=== PATIENT | female | born 1950 | race Caucasian/White ===

== ENCOUNTER → 2019-08-01 08:26 | Outpatient (CLI) | payer SELFPAY ==
[2019-08-01 10:33] LABS: ALB/GLOB Ratio 1.1 RATIO (0.9-2.4); AST(SGOT) 19 U/L (15-37); Alanine Aminotransfer ALT/SGPT 25 U/L (13-56); Albumin, Serum 3.6 g/dL (3.2-5.0); Alkaline Phosphatase 69 U/L (45-117); Anion Gap 6 (5-15); BUN 20 mg/dL (7-18); BUN/Creat Ratio 33.7 RATIO (10-20); Calcium,Total 9.2 mg/dL (8.5-10.1); Chloride 104 mmol/L (98-107); Cholesterol 187 mg/dL (200); Creatinine, Serum 0.59 mg/dL (0.55-1.02); EST Glomerular Filtration Rate 107 mL/min (>60); Est Glom Filt Rate - Afr Amer 130 mL/min (>60); Globulin 3.2 g/dL (2.2-4.2); Glucose 127 mg/dL (74-106); High Density Lipoprotein 66 mg/dL; Potassium 3.8 mmol/L (3.5-5.1); Protein, Total 6.8 g/dL (6.4-8.2); Sodium Level 138 mmol/L (136-145); Triglycerides 130 mg/dL; Very Low Density Lipoprotein 26 mg/dL (5-40)
[2019-08-01 10:41] LABS: Hemoglobin A1c 6.3 % (4.2-6.3)
== END ==
PROVIDERS: Family Provider Internal Medicine; Visit Provider Family Medicine
DX: I10 Essential (primary) hypertension (principal); E78.00 Pure hypercholesterolemia, unspecified
CPT/HCPCS: 36415; 80053; 80061; 83036

== ENCOUNTER → 2020-01-20 11:41 | Outpatient (CLI) | payer MEDICARE, OTHER, SELFPAY ==
--- NOTE | 2020-01-20 11:53 | BI_ITS ---
MAMMOGRAPHY - BILATERAL SCREENING REASON FOR EXAM: Female, 69 years old. Routine annual screening examination. PERTINENT HISTORY: Non-contributory. TECHNIQUE: Digital bilateral breast fernie (3D mammographic acquisition) in the CC and MLO projections. 2-D mediolateral oblique (MLO) and craniocaudad (CC) views of both breasts were obtained. CAD: Full Field Digital Mammography with Computer Added Detection was performed. COMPARISON: Comparison is made with prior examination dated September 01, 2018. FINDINGS: Breast Composition: The breasts are almost entirely fatty. There are no dominant masses or suspicious calcifications. Stable benign-appearing bilateral axillary lymph nodes. No other significant abnormalities are identified. There has been no significant change since the prior study. BI/SCREEN MAMM (CAD) W/FERNIE BILAT IMPRESSION: Stable bilateral screening mammogram. Yearly follow-up mammogram recommended. (A) ASSESSMENT CATEGORY: BIRADS Category 2: Benign. A letter regarding these results will be sent to the patient by the facility within 30 days. Approximately 10% of breast cancers are not detected by mammography. A normal mammogram should not delay biopsy of a clinically suspicious abnormality. [id number] Electronically Signed: Rene Chowdary, at 8:34 EDT , Service support ,
== END ==
PROVIDERS: PCP Family Medicine; Referring Provider Family Medicine; Visit Provider Family Medicine
DX: Z12.31 Encounter for screening mammogram for malignant neoplasm of breast (principal)
CPT/HCPCS: 77063; 77067

== ENCOUNTER → 2020-04-05 | Outpatient (CLI) | payer MEDICARE, OTHER, SELFPAY ==
[2020-04-05 18:09] LABS: Bacteria 0 SEEN /hpf (None Seen); Mucous, Urine 0 SEEN /hpf (<or=2+); White Blood Cells 0 SEEN /hpf (0-5)
[2020-04-05 18:21] LABS: Color, Urine Yellow (Yellow); Glucose, Dipstick Normal (Normal); Ketone-Dipstick Negative (Negative); Leukocyte Esterase-Dipstick Negative /ul (Negative); Nitrite-Dipstick Negative (Negative); Occult Blood-Urine 50 /ul (Negative); Protein-Dipstick Negative (Negative); Urine Bilirubin Dipstick Negative (Negative); Urine Clarity Sl. Cloudy (Clear); Urine Urobilinogen Normal (Normal)
[2020-04-05 18:32] LABS: Red Blood Cells-Urine 0-5 SEEN /hpf (0-5)
[2020-04-05 18:33] LABS: Squamous Epithelial Cells - UA 0-5 SEEN /hpf (5-10)
== END | disposition home or self-care (01) ==
PROVIDERS: PCP Family Medicine; Referring Provider Family Medicine; Visit Provider Family Medicine
DX: N39.0 Urinary tract infection, site not specified (principal)
CPT/HCPCS: 81001; 87086; 87088; 87186

== ENCOUNTER → 2020-07-06 08:28 | Outpatient (CLI) | payer MEDICARE, OTHER, SELFPAY ==
[2020-07-06 10:45] LABS: ALB/GLOB Ratio 1.1 RATIO (0.9-2.4); AST(SGOT) 18 U/L (15-37); Alanine Aminotransfer ALT/SGPT 26 U/L (13-56); Albumin, Serum 3.6 g/dL (3.2-5.0); Alkaline Phosphatase 68 U/L (45-117); Anion Gap 7 (5-15); BUN 21 mg/dL (7-18); BUN/Creat Ratio 35.7 RATIO (10-20); Calcium,Total 8.7 mg/dL (8.5-10.1); Chloride 99 mmol/L (98-107); Cholesterol 162 mg/dL (200); Creatinine, Serum 0.59 mg/dL (0.55-1.02); EST Glomerular Filtration Rate 108 mL/min (>60); Est Glom Filt Rate - Afr Amer 131 mL/min (>60); Globulin 3.2 g/dL (2.2-4.2); Glucose 125 mg/dL (74-106); High Density Lipoprotein 71 mg/dL; Potassium 3.3 mmol/L (3.5-5.1); Protein, Total 6.8 g/dL (6.4-8.2); Sodium Level 135 mmol/L (136-145); Triglycerides 104 mg/dL; Very Low Density Lipoprotein 21 mg/dL (5-40)
== END ==
PROVIDERS: PCP Family Medicine; Visit Provider Family Medicine
DX: I10 Essential (primary) hypertension (principal); E78.00 Pure hypercholesterolemia, unspecified
CPT/HCPCS: 36415; 80053; 80061

== ENCOUNTER → 2020-10-18 10:02 | Outpatient (CLI) | payer MEDICARE, OTHER, SELFPAY ==
[2020-10-18 12:28] LABS: Anion Gap 6 (5-15); BUN 21 mg/dL (7-18); BUN/Creat Ratio 37.4 RATIO (10-20); Calcium,Total 9.1 mg/dL (8.5-10.1); Chloride 98 mmol/L (98-107); Creatinine, Serum 0.56 mg/dL (0.55-1.02); EST Glomerular Filtration Rate 114 mL/min (>60); Est Glom Filt Rate - Afr Amer 138 mL/min (>60); Glucose 106 mg/dL (74-106); Potassium 3.8 mmol/L (3.5-5.1); Sodium Level 134 mmol/L (136-145)
== END ==
PROVIDERS: PCP Family Medicine; Referring Provider Family Medicine; Visit Provider Family Medicine
DX: R42 Dizziness and giddiness (principal)
CPT/HCPCS: 36415; 80048; 83735

== ENCOUNTER 2020-12-05 11:00 | Outpatient (RCR) | payer MEDICARE, OTHER, SELFPAY ==
--- NOTE | 2020-11-27 11:53 | HP.PTEVAL_ITS ---
Patient's Visit Information RONALD SAM is a 70 year old F referred to Physical Therapy by Dr. Ian Sanz MD with a diagnosis of vertigo. Date of Evaluation: 11/27/20 Physical Therapist: SEYMOUR Clark - Visit Plan Frequency: 1x/Week Duration: 3 Weeks Plan: See the pt in 1 week to recheck L Hallpike and see if symptoms have resolved - Subjective Pt reports that she had a spell a year and 1/2 ago when she would roll over the room would spin but it went away. In Dec it came back and went away quick. Now she feels a little bit better. Rolling over now the room will spin. Occ if she comes fw fast in a recliner she will feel it a little bit. It seems like it is worse when she rolls to the L. The spinning lasts not long... about 30 seconds and then it goes away. When she was first having issues it was longer. She was given something to spray up nose to clear sinuses but it did not do anything. Her balance is ok if she is just walking around. No falls. - Objective + L Hallpike for nystagmus that lasted for 30 seconds. Went right into L EPLY. Retested L Hallpike and was negative for dizziness and nystagmus. Instructed pt to avoid looking down until tomorrow and resume regular activities. Explained what BPPV was and the treatment that we just did to hopefully reduce her symptoms with rolling. Pt felt good when she left the clinic. - Goals Goal 1:: I HEP Goal Time Frame: 2-4 Weeks Goal 2:: Abolish dizziness when rolling from L side to R side Goal Time Frame: 2-4 Weeks Goal 3:: Abolish dizziness when going to sit up in her recliner Goal Time Frame: 2-4 Weeks - Rehabilitation Potential Rehabilitation Potential: Good - Anticipated Interventions Patient/Client Instruction: Educate patient on: Condition, Plan of Care For the Purpose of:: To improve performance and independence with ADL's, To improve ability of physical actions for home/community/work/leisure, To improve gait and locomotor functions, To improve safety with gait Therapeutic Exercise to Include: Strength training, Postural training, Neuromotor development, Passive ROM, Active ROM For the Purpose of:: To increase tolerance to activity/condition/position, To improve ability of physical actions for home/community/work/leisure, To improve gait and locomotor functions, To improve safety with gait Manual Therapy Techniques to Include: Other For the Purpose of:: To improve muscle performance and motor function Thank you for the opportunity to evaluate your patient. For Medicare and Medicare HMO plans, please review the plan of care and approve it. It will need to be FAXED BACK to us at [phone] for Medicare purposes. For Medicare only, by signing this I certify the plan of care. Please let me know if there are questions or concerns regarding this plan of care. Physician Signature: Date:
--- NOTE | 2020-12-05 11:14 | HP.PTDCSUM ---
It has been my pleasure to treat RONALD SAM referred by Dr. Ian Sanz MD, with the diagnosis of vertigo for a total of 2 visit(s). Discharge Date: 12/05/20 Please see the following information for a summary of their discharge status. Subjective: Pt reports that she did not feel great the next morning but has not had any dizziness since then. Rolling over in bed she feels good. She feels back to 100%. Her balance does not feel off either. % Improvement: 100 Objective/Function: - L Hallpike for dizziness and nystagmus. Goal 1:: I HEP Goal Progress: Goal Met Goal 2:: Abolish dizziness when rolling from L side to R side Goal Progress: Goal Met Goal 3:: Abolish dizziness when going to sit up in her recliner Goal Progress: Goal Met Plan: DC PT Discharge Comments: DC PT If there are questions or concerns regarding this patient's physical therapy, please feel free to call me at [phone]. Thank you for the referral of this patient. Sincerely, Jennifer Salas, MPT
== END 2020-12-05 19:00 | disposition home or self-care (01) ==
LOC: PT 11:00
PROVIDERS: PCP Family Medicine; Referring Provider Family Medicine; Visit Provider Family Medicine
DX: R42 Dizziness and giddiness (principal)
CPT/HCPCS: 97161; 97530

== ENCOUNTER → 2021-01-30 13:49 | Outpatient (CLI) | payer MEDICARE, OTHER, SELFPAY ==
--- NOTE | 2021-01-30 13:52 | BI_ITS ---
MAMMOGRAPHY - BILATERAL SCREENING REASON FOR EXAM: Female, 70 years old. Routine annual screening examination. PERTINENT HISTORY: Non-contributory. TECHNIQUE: Digital bilateral breast ana (3D mammographic acquisition) in the CC and MLO projections. 2-D mediolateral oblique (MLO) and craniocaudad (CC) views of both breasts were obtained. CAD: Full Field Digital Mammography with Computer Added Detection was performed. COMPARISON: Comparison is made with prior study dated 01/20/2020. FINDINGS: Breast Composition: The breasts are almost entirely fatty. There are no dominant masses or suspicious calcifications. Stable small benign-appearing bilateral axillary lymph nodes. No other significant abnormalities are identified. There has been no significant change since the prior study. BI/SCREENING MAMM (CAD), BILAT IMPRESSION: Stable bilateral screening mammogram. Yearly follow-up mammogram recommended. (A) ASSESSMENT CATEGORY: BIRADS Category 2: Benign. A letter regarding these results will be sent to the patient by the facility within 30 days. Approximately 10% of breast cancers are not detected by mammography. A normal mammogram should not delay biopsy of a clinically suspicious abnormality. [id number] Electronically Signed: Rene Chowdary MD at 14:44 EDT , Service support ,
== END ==
PROVIDERS: PCP Family Medicine; Referring Provider Family Medicine; Visit Provider Family Medicine
DX: Z12.31 Encounter for screening mammogram for malignant neoplasm of breast (principal)
CPT/HCPCS: 77067

== ENCOUNTER → 2021-06-19 08:26 | Outpatient (CLI) | payer MEDICARE, OTHER, SELFPAY ==
[2021-06-19 10:28] LABS: Anion Gap 5 (5-15); BUN 23 mg/dL (7-18); BUN/Creat Ratio 42.5 RATIO (10-20); Calcium,Total 9.1 mg/dL (8.5-10.1); Chloride 101 mmol/L (98-107); Cholesterol 180 mg/dL (200); Creatinine, Serum 0.54 mg/dL (0.55-1.02); EST Glomerular Filtration Rate 119 mL/min (>60); Est Glom Filt Rate - Afr Amer 144 mL/min (>60); Glucose 147 mg/dL (74-106); High Density Lipoprotein 66 mg/dL; Potassium 3.9 mmol/L (3.5-5.1); Sodium Level 135 mmol/L (136-145); Triglycerides 121 mg/dL; Very Low Density Lipoprotein 24 mg/dL (5-40)
[2021-06-19 10:32] LABS: Hemoglobin A1c 6.1 % (3.8-5.6)
== END ==
PROVIDERS: PCP Nurse Practitioner Family; Referring Provider Nurse Practitioner Family; Visit Provider Nurse Practitioner Family
DX: E11.9 Type 2 diabetes mellitus without complications (principal); I10 Essential (primary) hypertension; E78.00 Pure hypercholesterolemia, unspecified
CPT/HCPCS: 36415; 80048; 80061; 83036

== ENCOUNTER 2021-10-15 10:22 | Outpatient (CLI) | payer MEDICARE, OTHER, SELFPAY ==
[2021-10-15 10:31] LABS: Mucous, Urine 0 SEEN /hpf (<or=2+); Red Blood Cells-Urine 0 SEEN /hpf (0-5); Squamous Epithelial Cells - UA 0 SEEN /hpf (5-10); White Blood Cells 0 SEEN /hpf (0-5)
[2021-10-15 12:24] LABS: Absolute Neutrophil Count 5.1 X10^3/uL (2.0-7.7); Basophil# 0.08 X10^3/uL; Eosinophil# 0.21 X10^3/uL; Eosinophils% 2.5 % (0-5); Hematocrit 47.1 % (37-47); Hemoglobin 15.5 g/dL (12.0-15.0); Lymphocyte % 25.4 % (19-41); Mean Corp Hgb Conc 32.9 g/dL (32-36); Mean Corpuscular Hgb 28.4 pg (27.0-32.0); Mean Corpuscular Volume 86.3 fL (81-99); Mean Platelet Vol. 11.1 fl (6.2-12.0); Monocyte# 0.78 X10^3/uL; Monocyte% 9.4 % (0-10); NRBC Flagged by Analyzer 0 % (0-5); Neutrophil # 5.06 X10^3/uL (2.7-7.7); Neutrophil % 61.2 % (47-70); Platelet Count 230 K/mm3 (150-450); RBC Distribution Width SD 40.4 fl (35.1-43.9); Red Blood Count 5.46 M/mm3 (4.2-5.4); White Blood Count 8.3 K/mm3 (4.4-11.0)
[2021-10-15 12:39] LABS: Color, Urine Yellow (Yellow); Glucose, Dipstick Normal (Normal); Ketone-Dipstick Negative (Negative); Leukocyte Esterase-Dipstick Negative /ul (Negative); Nitrite-Dipstick Negative (Negative); Occult Blood-Urine Negative /ul (Negative); Protein-Dipstick Negative (Negative); Specific Gravity, Urine 1.015 (1.002-1.030); Urine Bilirubin Dipstick Negative (Negative); Urine Clarity Sl. Cloudy (Clear); Urine Urobilinogen Normal (Normal)
[2021-10-15 12:45] LABS: Amorphous Sediment 1+; Bacteria 2+ /hpf (None Seen)
[2021-10-15 12:51] LABS: Hemoglobin A1c 6.2 % (3.8-5.6)
[2021-10-15 12:55] LABS: AST(SGOT) 21 U/L (15-37); Alanine Aminotransfer ALT/SGPT 30 U/L (13-56); Albumin, Serum 3.6 g/dL (3.2-5.0); Alkaline Phosphatase 77 U/L (45-117); Anion Gap 7 (5-15); BUN 23 mg/dL (7-18); BUN/Creat Ratio 46.3 RATIO (10-20); Calcium,Total 9.4 mg/dL (8.5-10.1); Chloride 99 mmol/L (98-107); Cholesterol 197 mg/dL (200); EST Glomerular Filtration Rate 131 mL/min (>60); Est Glom Filt Rate - Afr Amer 158 mL/min (>60); Globulin 3.6 g/dL (2.2-4.2); Glucose 112 mg/dL (74-106); High Density Lipoprotein 63 mg/dL; Potassium 3.6 mmol/L (3.5-5.1); Protein, Total 7.2 g/dL (6.4-8.2); Sodium Level 136 mmol/L (136-145); T4 Free Direct 1.19 ng/dL (0.76-1.46); Thyroid Stim Hormone (TSH) 1.43 uIU/mL (0.358-3.74); Triglycerides 197 mg/dL; Very Low Density Lipoprotein 39 mg/dL (5-40)
[2021-10-15 13:00] LABS: Vitamin D,25 Hydroxy 105.5 ng/mL
[2021-10-15 13:01] LABS: Microalbumin,Random Urine < 5.0 mg/L (NO RANGE EST.)
[2021-10-17 19:01] LABS: Anti-Thyroglobulin AB < 1.0 IU/mL (0.0-0.9); Thyroglobulin, Serum Qt. 38.8 ng/mL (1.5-38.5); Thyroid Peroxidase AB 8 IU/mL (0-34)
== END 2021-10-15 23:59 | disposition home or self-care (01) ==
LOC: MFPLAB 10:23
PROVIDERS: PCP Family Medicine; Referring Provider Family Medicine; Visit Provider Family Medicine
DX: E11.9 Type 2 diabetes mellitus without complications (principal); E55.9 Vitamin D deficiency, unspecified; E04.1 Nontoxic single thyroid nodule
CPT/HCPCS: 36415; 80053; 80061; 81001; 82043; 82306; 82570; 83036; 84432; 84439; 84443; 85025; 86376; 86800

== ENCOUNTER 2021-10-18 12:38 | Outpatient (CLI) | payer MEDICARE, OTHER, SELFPAY ==
--- NOTE | 2021-10-18 12:42 | US_ITS ---
STUDY: THYROID ULTRASOUND REASON FOR EXAM: Female, 71 years old. NODULE TECHNIQUE: Ultrasound evaluation of the thyroid was performed with real-time and static ty-scale imaging. COMPARISON: None. FINDINGS: RIGHT LOBE: The right lobe of the thyroid gland measures 5.7 x 2.5 cm. There is a heterogeneous echotexture. There are nodules. These measure 7 x 8 mm, 10 x 11 mm, and 9 x 9 mm. LEFT LOBE: The left lobe of the thyroid gland measures 6 x 2.1 cm. There is a heterogeneous echotexture. There are nodules. These measure 8 x 8 mm, 12 x 13 mm, and 20 x 18 mm. ISTHMUS: The isthmus measures 4 mm. US/Thyroid IMPRESSION: There are RIGHT nodules. This nodule is solid or almost completely solid, anechoic, [id number], smoothly marginated and contains no echogenic foci. TI-RADS points: 2. TI-RADS category: TR2. This nodule is not suspicious and no FNA or follow-up is necessary. There are left nodules. This nodule is solid or almost completely solid, anechoic, [id number], smoothly marginated and contains no echogenic foci. TI-RADS points: 2. TI-RADS category: TR2. This nodule is not suspicious and no FNA or follow-up is necessary. Electronically Signed: Maurice Rasmussen MD at 21:41 EST ,
== END 2021-10-18 23:59 | disposition home or self-care (01) ==
LOC: CVS 12:39
PROVIDERS: PCP Family Medicine; Referring Provider Family Medicine; Visit Provider Family Medicine
DX: E04.1 Nontoxic single thyroid nodule (principal); R01.1 Cardiac murmur, unspecified
CPT/HCPCS: 76536

== ENCOUNTER 2021-11-06 10:53 | Outpatient (CLI) | payer MEDICARE, OTHER, SELFPAY ==
--- NOTE | 2021-11-06 10:56 | ECHOD_ITS ---
Reason For Study: MURMUR Procedure This was a 2D Doppler, Color Flow transthoracic echocardiogram. The study was technically difficult. Exam performed in department. Left Ventricle Normal LV size. Left ventricular systolic function is hyperdynamic. The estimated ejection fraction is 75 %. Diastolic function is indeterminate. No regional wall motion abnormalities noted. Right Ventricle Normal RV size. Normal systolic function. Atria Normal left atrium. Normal right atrium. No doppler evidence for ASD. Mitral Valve There is mild mitral annular calcification. Extension of the mitral annular calcification on the base of the posterior mitral valve leaflet. Trivial mitral valve insufficiency. Tricuspid Valve Normal tricuspid valve. Trivial tricuspid valve insufficiency. Unable to estimate RV systolic pressure/pulmonary artery pressure due to technically difficult study. Aortic Valve The aortic valve is not well visualized. Pulmonic Valve The pulmonic valve is not well visualized. Great Vessels Normal sized aortic root. Pericardium/Pleural No pericardial effusion. MMode/2D Measurements & Calculations LVIDd: 4.8 cm IVSd: 0.98 cm Ao root diam: 3.2 cm LVIDs: 2.5 cm LVPWd: 0.96 cm RVDd: 3.1 cm FS: 48.2 % LAV(MOD-bp): 60.1 ml LA A4 area: 19.7 cm2 LA dimension(2D): 4.1 cm LAV(MOD-bp) Indexed: 27.9 ml/m2 LAV(MOD-sp2): 64.1 ml LAV(MOD-sp4): 54.7 ml RA A4 area: 16.7 cm2 Time Measurements MV dec time: 0.22 sec Doppler Measurements & Calculations MV E max freeman: 69.2 cm/sec Lat Peak E' Freeman: 7.7 cm/sec Med Peak E' Freeman: 7.6 cm/sec MV A max freeman: 76.4 cm/sec E/E' lat: 8.9 E/E' med: 9.1 MV E/A: 0.91 Ao V2 max: 118.2 cm/sec LV V1 max: 101.1 cm/sec Ao max P.8 mmHg LV V1 max P.1 mmHg ECHO/Echo Complete Interpretation Summary The study was technically difficult. Left ventricular systolic function is hyperdynamic. The estimated ejection fraction is 75 %. There is mild mitral annular calcification. Extension of the mitral annular calcification on the base of the posterior mitr al valve leaflet. Trivial mitral valve insufficiency. Trivial tricuspid valve insufficiency. Unable to estimate RV systolic pressure/pulmonary artery pressure due to techni belinda difficult study. Diastolic function is indeterminate. Ordering Physician: Ian Ritchie Referring Physician: Ian Ritchie Performed By: Sandra Pearson, CHRISTIAN, RVT
== END 2021-11-06 23:59 | disposition home or self-care (01) ==
LOC: CVS 10:54
PROVIDERS: PCP Family Medicine; Referring Provider Family Medicine; Visit Provider Family Medicine
DX: R01.1 Cardiac murmur, unspecified (principal)
CPT/HCPCS: 93306

== ENCOUNTER 2021-11-27 14:10 | Outpatient (CLI) | payer MEDICARE, OTHER, SELFPAY ==
[2021-11-27 17:52] LABS: Absolute Neutrophil Count 4.9 X10^3/uL (2.0-7.7); Basophil# 0.06 X10^3/uL; Basophil% 0.8 % (0-1); Eosinophil# 0.23 X10^3/uL; Eosinophils% 2.9 % (0-5); Hematocrit 45.9 % (37-47); Hemoglobin 15.6 g/dL (12.0-15.0); Mean Corpuscular Hgb 28.7 pg (27.0-32.0); Mean Corpuscular Volume 84.4 fL (81-99); Mean Platelet Vol. 11.1 fl (6.2-12.0); Monocyte# 0.74 X10^3/uL; Monocyte% 9.3 % (0-10); NRBC Flagged by Analyzer 0 % (0-5); Neutrophil # 4.94 X10^3/uL (2.7-7.7); Neutrophil % 61.6 % (47-70); Platelet Count 199 K/mm3 (150-450); RBC Distribution Width SD 39.7 fl (35.1-43.9); Red Blood Count 5.44 M/mm3 (4.2-5.4)
[2021-11-27 18:09] LABS: Ferritin 155 ng/mL (8-252); Iron 61 ug/dL (50-170); Iron Binding Capacity,Total 344 ug/dL (250-450)
[2021-11-29 11:36] LABS: Transferrin 231 mg/dL (192-364)
== END 2021-11-27 23:59 | disposition home or self-care (01) ==
LOC: MFPLAB 14:23
PROVIDERS: PCP Family Medicine; Referring Provider Family Medicine; Visit Provider Family Medicine
DX: D75.1 Secondary polycythemia (principal)
CPT/HCPCS: 36415; 82728; 83540; 83550; 84466; 85025

== ENCOUNTER → 2022-02-28 | Outpatient (CLI) | payer MEDICARE, OTHER, SELFPAY ==
[2022-02-28 15:11] LABS: Absolute Lymphocyte Count 2.13 X10^3/uL (0.83-4.51); Absolute Neutrophil Count 5.2 X10^3/uL (2.0-7.7); Basophil# 0.07 X10^3/uL; Basophil% 0.8 % (0-1); Eosinophil# 0.24 X10^3/uL; Eosinophils% 2.9 % (0-5); Hematocrit 45.6 % (37-47); Hemoglobin 15.5 g/dL (12.0-15.0); Lymphocyte # 2.13 X10^3/ul (0.83-4.51); Lymphocyte % 25.6 % (19-41); Mean Corpuscular Hgb 28.9 pg (27.0-32.0); Mean Corpuscular Volume 85.1 fL (81-99); Monocyte# 0.68 X10^3/uL; Monocyte% 8.2 % (0-10); NRBC Flagged by Analyzer 0 % (0-5); Neutrophil # 5.19 X10^3/uL (2.7-7.7); Neutrophil % 62.3 % (47-70); Platelet Count 218 K/mm3 (150-450); Red Blood Count 5.36 M/mm3 (4.2-5.4); White Blood Count 8.3 K/mm3 (4.4-11.0)
[2022-02-28 15:29] LABS: Hemoglobin A1c 6.1 % (3.8-5.6)
[2022-02-28 15:38] LABS: Vitamin D,25 Hydroxy 53.9 ng/mL
[2022-02-28 15:40] LABS: ALB/GLOB Ratio 1.1 RATIO (0.9-2.4); AST(SGOT) 22 U/L (15-37); Alanine Aminotransfer ALT/SGPT 27 U/L (13-56); Albumin, Serum 3.7 g/dL (3.2-5.0); Alkaline Phosphatase 67 U/L (45-117); Anion Gap 8 (5-15); BUN 18 mg/dL (7-18); BUN/Creat Ratio 29.2 RATIO (10-20); Calcium,Total 9.8 mg/dL (8.5-10.1); Chloride 101 mmol/L (98-107); Cholesterol 194 mg/dL (200); Creatinine, Serum 0.62 mg/dL (0.55-1.02); EST Glomerular Filtration Rate 102 mL/min (>60); Est Glom Filt Rate - Afr Amer 123 mL/min (>60); Globulin 3.4 g/dL (2.2-4.2); Glucose 130 mg/dL (74-106); High Density Lipoprotein 66 mg/dL; Potassium 3.4 mmol/L (3.5-5.1); Protein, Total 7.1 g/dL (6.4-8.2); Sodium Level 138 mmol/L (136-145); Triglycerides 113 mg/dL; Very Low Density Lipoprotein 23 mg/dL (5-40)
== END | disposition home or self-care (01) ==
LOC: MFPLAB 13:55
PROVIDERS: PCP Family Medicine; Referring Provider Family Medicine; Visit Provider Family Medicine
DX: E11.9 Type 2 diabetes mellitus without complications (principal); E55.9 Vitamin D deficiency, unspecified
CPT/HCPCS: 36415; 80053; 80061; 82306; 83036; 85025

== ENCOUNTER → 2022-03-21 | Outpatient (CLI) | payer MEDICARE, OTHER, SELFPAY ==
--- NOTE | 2022-03-21 09:55 | BI_ITS ---
MAMMOGRAPHY - BILATERAL SCREENING REASON FOR EXAM: Female, 72 years old. Routine annual screening examination. PERTINENT HISTORY: Non-contributory. TECHNIQUE: Digital bilateral breast fernie (3D mammographic acquisition) in the CC and MLO projections. 2-D mediolateral oblique (MLO) and craniocaudad (CC) views of both breasts were obtained. CAD: Full Field Digital Mammography with Computer Added Detection was performed. COMPARISON: Comparison is made with prior study dated 01/30/2021 and 01/20/2020. FINDINGS: Breast Composition: The breasts are almost entirely fatty. There are no dominant masses or suspicious calcifications. A tissue clip marker is seen in the upper central aspect of the left breast. Stable small benign-appearing bilateral axillary lymph nodes. No other significant abnormalities are identified. There has been no significant change since the prior study. BI/SCRN MAMM (CAD)W/FERNIE BILAT IMPRESSION: Stable bilateral screening mammogram. Yearly follow-up mammogram recommended. (A) ASSESSMENT CATEGORY: BIRADS Category 2: Benign. A letter regarding these results will be sent to the patient by the facility within 30 days. Approximately 10% of breast cancers are not detected by mammography. A normal mammogram should not delay biopsy of a clinically suspicious abnormality. [id number] Electronically Signed: Rene Chowdary MD at 9:30 EDT ,
== END | disposition home or self-care (01) ==
LOC: OPBI 09:54
PROVIDERS: PCP Family Medicine; Visit Provider Family Medicine
DX: Z12.31 Encounter for screening mammogram for malignant neoplasm of breast (principal)
CPT/HCPCS: 77063; 77067

== ENCOUNTER → 2022-05-30 | Outpatient (CLI) | payer MEDICARE, OTHER, SELFPAY ==
[2022-05-30 15:43] LABS: Absolute Lymphocyte Count 2.27 X10^3/uL (0.83-4.51); Absolute Neutrophil Count 4.4 X10^3/uL (2.0-7.7); Basophil# 0.08 X10^3/uL; Eosinophil# 0.35 X10^3/uL; Eosinophils% 4.5 % (0-5); Hematocrit 46.5 % (37-47); Hemoglobin 15.7 g/dL (12.0-15.0); Lymphocyte # 2.27 X10^3/ul (0.83-4.51); Lymphocyte % 29.1 % (19-41); Mean Corp Hgb Conc 33.8 g/dL (32-36); Mean Corpuscular Hgb 29.3 pg (27.0-32.0); Mean Corpuscular Volume 86.9 fL (81-99); Monocyte# 0.68 X10^3/uL; Monocyte% 8.7 % (0-10); NRBC Flagged by Analyzer 0 % (0-5); Neutrophil # 4.38 X10^3/uL (2.7-7.7); Neutrophil % 56.3 % (47-70); Platelet Count 219 K/mm3 (150-450); RBC Distribution Width CV 13.2 % (11.6-14.6); RBC Distribution Width SD 41.6 fl (35.1-43.9); Red Blood Count 5.35 M/mm3 (4.2-5.4); White Blood Count 7.8 K/mm3 (4.4-11.0)
[2022-05-30 16:28] LABS: Hemoglobin A1c 6.3 % (3.8-5.6)
[2022-05-30 16:30] LABS: Vitamin B12 491 pg/mL (211-911); Vitamin D,25 Hydroxy 59.4 ng/mL
[2022-05-30 16:32] LABS: ALB/GLOB Ratio 1.1 RATIO (0.9-2.4); AST(SGOT) 20 U/L (15-37); Alanine Aminotransfer ALT/SGPT 24 U/L (13-56); Albumin, Serum 3.7 g/dL (3.2-5.0); Alkaline Phosphatase 68 U/L (45-117); Anion Gap 6 (5-15); BUN 21 mg/dL (7-18); BUN/Creat Ratio 30.4 RATIO (10-20); Calcium,Total 9.8 mg/dL (8.5-10.1); Chloride 100 mmol/L (98-107); Cholesterol 179 mg/dL (200); Creatinine, Serum 0.69 mg/dL (0.55-1.02); EST Glomerular Filtration Rate 89 mL/min (>60); Est Glom Filt Rate - Afr Amer 108 mL/min (>60); Globulin 3.3 g/dL (2.2-4.2); Glucose 113 mg/dL (74-106); High Density Lipoprotein 63 mg/dL; Sodium Level 137 mmol/L (136-145); T4 Free Direct 1.21 ng/dL (0.76-1.46); Triglycerides 132 mg/dL; Very Low Density Lipoprotein 26 mg/dL (5-40)
== END | disposition home or self-care (01) ==
LOC: MFPLAB 12:14
PROVIDERS: PCP Family Medicine; Referring Provider Family Medicine; Visit Provider Family Medicine
DX: E11.9 Type 2 diabetes mellitus without complications (principal); E55.9 Vitamin D deficiency, unspecified
CPT/HCPCS: 36415; 80053; 80061; 82306; 82607; 83036; 84439; 84443; 85025

== ENCOUNTER → 2022-10-29 | Outpatient (CLI) | payer MEDICARE, OTHER, SELFPAY ==
[2022-10-29 12:09] LABS: Absolute Lymphocyte Count 2.02 X10^3/uL (0.83-4.51); Absolute Neutrophil Count 5.5 X10^3/uL (2.0-7.7); Basophil# 0.06 X10^3/uL; Basophil% 0.7 % (0-1); Eosinophil# 0.25 X10^3/uL; Eosinophils% 2.9 % (0-5); Hematocrit 47.8 % (37-47); Hemoglobin 16.1 g/dL (12.0-15.0); Lymphocyte # 2.02 X10^3/ul (0.83-4.51); Lymphocyte % 23.5 % (19-41); Mean Corp Hgb Conc 33.7 g/dL (32-36); Mean Corpuscular Hgb 28.8 pg (27.0-32.0); Mean Corpuscular Volume 85.5 fL (81-99); Mean Platelet Vol. 11.3 fl (6.2-12.0); Monocyte# 0.74 X10^3/uL; Monocyte% 8.6 % (0-10); NRBC Flagged by Analyzer 0 % (0-5); Neutrophil # 5.49 X10^3/uL (2.7-7.7); Platelet Count 227 K/mm3 (150-450); RBC Distribution Width CV 12.9 % (11.6-14.6); RBC Distribution Width SD 39.7 fl (35.1-43.9); Red Blood Count 5.59 M/mm3 (4.2-5.4); White Blood Count 8.6 K/mm3 (4.4-11.0)
[2022-10-29 12:38] LABS: Microalbumin,Random Urine 7.7 mg/L (NO RANGE EST.)
[2022-10-29 12:53] LABS: Vitamin D,25 Hydroxy 72.2 ng/mL
[2022-10-29 12:59] LABS: AST(SGOT) 19 U/L (15-37); Alanine Aminotransfer ALT/SGPT 26 U/L (13-56); Albumin, Serum 3.6 g/dL (3.2-5.0); Alkaline Phosphatase 68 U/L (45-117); Anion Gap 9 (5-15); BUN 21 mg/dL (7-18); BUN/Creat Ratio 35.8 RATIO (10-20); Calcium,Total 9.3 mg/dL (8.5-10.1); Chloride 101 mmol/L (98-107); Cholesterol 248 mg/dL (200); Creatinine, Serum 0.59 mg/dL (0.55-1.02); EST Glomerular Filtration Rate 108 mL/min (>60); Est Glom Filt Rate - Afr Amer 130 mL/min (>60); Globulin 3.5 g/dL (2.2-4.2); Glucose 132 mg/dL (74-106); High Density Lipoprotein 65 mg/dL; Potassium 3.7 mmol/L (3.5-5.1); Protein, Total 7.1 g/dL (6.4-8.2); Sodium Level 136 mmol/L (136-145); Thyroid Stim Hormone (TSH) 1.25 uIU/mL (0.358-3.74); Triglycerides 165 mg/dL; Very Low Density Lipoprotein 33 mg/dL (5-40)
[2022-10-29 13:38] LABS: Hemoglobin A1c 6.3 % (3.8-5.6)
== END | disposition home or self-care (01) ==
LOC: MFPLAB 10:43
PROVIDERS: PCP Family Medicine; Referring Provider Family Medicine; Visit Provider Family Medicine
DX: E11.9 Type 2 diabetes mellitus without complications (principal); E55.9 Vitamin D deficiency, unspecified
CPT/HCPCS: 36415; 80053; 80061; 82043; 82306; 82570; 83036; 84443; 85025

== ENCOUNTER → 2022-11-10 | Outpatient (CLI) | payer MEDICARE, OTHER, SELFPAY ==
--- NOTE | 2022-11-10 14:31 | US_ITS ---
EXAM: US SOFT TISSUES HEAD AND NECK, THYROID CLINICAL INDICATION: NODULE NODULE TECHNIQUE: Greyscale and color doppler imaging was performed of the thyroid gland. This report was created using [employer] report generation technology. COMPARISON: Thyroid ultrasound 10/18/2021. FINDINGS: LEFT THYROID LOBE: The left lobe of the thyroid gland measures 6.4 x 2.6 x 2.3 cm. It is heterogeneous and contains multiple nodules, the 3 largest of which are as follows:. In the upper pole of the left lobe, there is a 1.3 x 1.4 x 0.8 cm nodule. This nodule is solid or almost completely solid, hypoechoic, [id number], smoothly marginated and contains no echogenic foci. This nodule is moderately suspicious. Recommend follow-up thyroid ultrasounds at 1, 2, 3 and 5 years. In the mid left lobe of the thyroid gland, there is an 8 mm nodule. This nodule is solid or almost completely solid, hypoechoic, [id number], smoothly marginated and contains no echogenic foci. This nodule is moderately suspicious but no FNA or follow-up is necessary given the small size of this nodule. In the lower pole of the left lobe of the thyroid gland, there is a 1.6 x 0.4 x 1.7 cm nodule. As imaged, it is slightly smaller than it was on the 2021 exam. This nodule is solid or almost completely solid, hyperechoic or isoechoic, [id number], smoothly marginated and contains no echogenic foci. This nodule is mildly suspicious. Recommend follow-up thyroid ultrasounds at 2 and 4 years. RIGHT THYROID LOBE: The right lobe of the thyroid gland measures 5.1 x 2.5 x 2.6 cm. It is heterogeneous and contains multiple nodules, the 3 largest of which are as follows:. In the mid right lobe of the thyroid gland, there is a 7 mm nodule. This nodule is spongiform. This nodule is benign and no FNA or follow-up is necessary. In the lower pole of the right lobe, there is a 1.3 x 1.3 x 0.8 cm nodule. This nodule is solid or almost completely solid, hyperechoic or isoechoic, [id number], smoothly marginated and contains no echogenic foci. This nodule is mildly suspicious but no FNA or follow-up is necessary given the small size of this nodule. In the lower pole of the right lobe, there is a 1.1 x 1.4 x 0.9 cm nodule. This nodule is solid or almost completely solid, hyperechoic or isoechoic, epwpe-iowz-hzie, smoothly marginated and contains no echogenic foci. This nodule is mildly suspicious but no FNA or follow-up is necessary given the small size of this nodule. ISTHMUS: The thyroid isthmus measures 3 mm. No thyroid nodules are present. US/Thyroid IMPRESSION: Redemonstration of multiple thyroid nodules, as above. Recommend additional follow-up ultrasound evaluations in another one, 2, 3, and 5 years. Electronically Signed: Андрей Chiang MD at 8:07 EDT ,
== END | disposition home or self-care (01) ==
LOC: US 14:29
PROVIDERS: PCP Family Medicine; Referring Provider Family Medicine; Visit Provider Family Medicine
DX: E04.2 Nontoxic multinodular goiter (principal)
CPT/HCPCS: 76536

== ENCOUNTER 2023-02-18 12:00 | Outpatient (RCR) | payer MEDICARE, OTHER, SELFPAY ==
--- NOTE | 2023-01-20 13:49 | HP.PTEVAL_ITS ---
Patient's Visit Information RONALD SAM is a 72 year old F referred to Physical Therapy by Dr. Ian Ritchie MD with a diagnosis of R RC tendonopathy. Date of Evaluation: 01/20/23 Physical Therapist: SEYMOUR Clark - Visit Plan Frequency: 2x /Week Duration: 6 Weeks Plan: 2X/ week for 6 weeks for R shoulder PROM, AAROM, AROM, stretching, strengthening of the RC and postural exercises with HEP. HEP: supine wand flexion, standing wand abd, and towel IR - Subjective Pt reports that her R shoulder hurts. She could not get her shoulder over her head but now can but it hurts. She thinks that in October she was carrying things from the basement and was about 40# and she tried to heeve hoe it into the trashcan and then her arms was sore and continued to be sore. She is R handed. no numbness and tingling. She does not feel it is any weaker than her L. She can only lay on her R shoulder sometimes. It feels like there is some reason it does not want to go overhead. - Pain R shoulder pain Pain Intensity (Out of 10): 0 Pain Intensity Range: 1, 2 Comment: with lifting it - Objective R handed: R 40# and L 40#. UE AROM: R flexion 120 degrees (painful), ABD 130, ER 30, IR L4. L flexion 150 degrees, ABD 175, ER 33, IR T12. UE MMT. R flexion 8.8, ABD 7.7, ER 10.9, IR 9.3. L flexion 12.4, ABD 12.1, ER 11.2, IR 12.7. Bicep relfex 2+/3 B. Pain with R HK. Pain and slight weakness with R Empty can test - Balance/Special Test Scores Quick DASH Score: 9.0900 - Goals Goal 1:: I HEP Goal Time Frame: 4-6 Weeks Goal 2:: Increase R shoulder AROM to equal the L (at time of the eval: R flexion 120 degrees (painful), ABD 130, ER 30, IR L4. L flexion 150 degrees, ABD 175, ER 33, IR T12) Goal Time Frame: 4-6 Weeks Goal 3:: Increase R UE MMT (at the time of the eval: R flexion 8.8, ABD 7.7, ER 10.9, IR 9.3 and. L flexion 12.4, ABD 12.1, ER 11.2, IR 12.7) Goal Time Frame: 4-6 Weeks Goal 4:: Be able to reach in her cupboard without having pain in the R shoulder Goal Time Frame: 4-6 Weeks - Rehabilitation Potential Rehabilitation Potential: Good - Anticipated Interventions Patient/Client Instruction: Educate patient on: Condition, Plan of Care For the Purpose of:: To decrease pain, To improve muscle performance and motor function, To improve ability to perform ADL's, To increase tolerance to activity/condition/position, To improve performance and independence with ADL's, To decrease level of supervision to perform tasks, To improve ability of physical actions for home/community/work/leisure, To improve health of tissue, To decrease soft tissue restriction, To increase flexibility/ROM Therapeutic Exercise to Include: Strength training, Body mechanics, Postural training, Flexibilty training, Neuromotor development, Passive ROM, Active ROM, Scapular Strength/Stabilization For the Purpose of:: To decrease pain, To increase ROM, To improve nutrient delivery to tissue, To increase oxygenation perfusion, To improve muscle performance and motor function, To improve ability to perform ADL's, To increase tolerance to activity/condition/position, To improve performance and independence with ADL's, To improve ability of physical actions for home/community/work/leisure, To improve health of tissue, To decrease soft tissue restriction, To increase flexibility/ROM Manual Therapy Techniques to Include: Passive ROM For the Purpose of:: To increase ROM, To improve nutrient delivery to tissue Thank you for the opportunity to evaluate your patient. For Medicare and Medicare HMO plans, please review the plan of care and approve it. It will need to be FAXED BACK to us at [phone] for Medicare purposes. For Medicare only, by signing this I certify the plan of care. Please let me know if there are questions or concerns regarding this plan of care. Physician Signature: Date:
--- NOTE | 2023-02-18 13:56 | HP.PTDCSUM ---
Discharge Summary D/C summary: It has been my pleasure to treat RONALD SAM referred by Dr. Ian Ritchie MD, with the diagnosis of R RC tendonopathy for a total of 8 visit(s). Discharge Date: 02/18/23 Please see the following information for a summary of their discharge status. Subjective Subjective: She feels that she is better than when she started but it still hurts some. She can reach up but some soreness at the end range. It is stiff in the morning but limpers up. She can reach out to the side with out pain and less cricking and cracking. Pain down the lateral arm at times and pain under the shoulder blade. The pulleys help the best. Pain R shoulder pain: Pain Intensity (Out of 10): 0 Overall Improvement % Improvement: 80 Objective Objective/Function: R flexion 156, ABD 158, ER 46, IR L1 R UE MMT (at the time of the eval: R flexion 11.2, ABD 10.3, ER 10.9 , IR 12.4 Goals Goal 1:: I HEP Goal Progress: Goal Met Goal 2:: Increase R shoulder AROM to equal the L (at time of the eval: R flexion 120 degrees (painful), ABD 130, ER 30, IR L4 L flexion 150 degrees, ABD 175, ER 33, IR T12) Goal Progress: Goal Met Goal 3:: Increase R UE MMT (at the time of the eval: R flexion 8.8, ABD 7.7, ER 10.9, IR 9.3 and L flexion 12.4, ABD 12.1, ER 11.2, IR 12.7) Goal Progress: Goal Met Goal 4:: Be able to reach in her cupboard without having pain in the R shoulder Goal Progress: Progressing Plan Plan: DC PT to HEP. Pt has improvements in ROM and strength D/C Information Discharge Comments: DC PT to HEP d/c sentence: If there are questions or concerns regarding this patient's physical therapy, please feel free to call me at [phone]. Thank you for the referral of this patient. Sincerely, Jennifer Salas, MPT Balance/Gait/Functional tests Balance/Special Test Scores Quick DASH Score: 2.2722
== END 2023-02-18 19:00 | disposition home or self-care (01) ==
LOC: PT 12:00
PROVIDERS: PCP Family Medicine; Referring Provider Family Medicine; Visit Provider Family Medicine
DX: M67.813 Other specified disorders of tendon, right shoulder (principal)
CPT/HCPCS: 97110; 97161; 97530

== ENCOUNTER → 2023-02-25 | Outpatient (CLI) | payer MEDICARE, OTHER, SELFPAY ==
[2023-02-25 12:58] LABS: Hemoglobin A1c 6.4 % (3.8-5.6)
[2023-02-25 13:11] LABS: ALB/GLOB Ratio 1.2 RATIO (0.9-2.4); AST(SGOT) 18 U/L (15-37); Alanine Aminotransfer ALT/SGPT 23 U/L (13-56); Albumin, Serum 3.6 g/dL (3.2-5.0); Alkaline Phosphatase 69 U/L (45-117); Anion Gap 9 (5-15); BUN 21 mg/dL (7-18); BUN/Creat Ratio 35.1 RATIO (10-20); Calcium,Total 9.3 mg/dL (8.5-10.1); Chloride 98 mmol/L (98-107); Cholesterol 162 mg/dL (200); EST Glomerular Filtration Rate 105 mL/min (>60); Est Glom Filt Rate - Afr Amer 127 mL/min (>60); Glucose 110 mg/dL (74-106); High Density Lipoprotein 60 mg/dL; Potassium 3.9 mmol/L (3.5-5.1); Protein, Total 6.6 g/dL (6.4-8.2); Sodium Level 134 mmol/L (136-145); Triglycerides 128 mg/dL; Very Low Density Lipoprotein 26 mg/dL (5-40)
== END | disposition home or self-care (01) ==
LOC: MFPLAB 11:33
PROVIDERS: PCP Family Medicine; Visit Provider Family Medicine
DX: E11.9 Type 2 diabetes mellitus without complications (principal)
CPT/HCPCS: 36415; 80053; 80061; 83036

== ENCOUNTER → 2023-05-05 | Outpatient (CLI) | payer MEDICARE, OTHER, SELFPAY ==
--- NOTE | 2023-05-05 12:32 | BI_ITS ---
MAMMOGRAPHY - BILATERAL SCREENING REASON FOR EXAM: Female, 73 years old. Routine annual screening examination. PERTINENT HISTORY: Non-contributory. TECHNIQUE: Digital bilateral breast fernie (3D mammographic acquisition) in the CC and MLO projections. 2-D mediolateral oblique (MLO) and craniocaudad (CC) views of both breasts were obtained. CAD: Full Field Digital Mammography with Computer Added Detection was performed. COMPARISON: Comparison is made with prior study March 21, 2022 and January 30, 2021. FINDINGS: Breast Composition: The breasts are almost entirely fatty. There are no dominant masses or suspicious calcifications. Stable small benign-appearing bilateral axillary lymph nodes. No other significant abnormalities are identified. There has been no significant change since the prior study. BI/SCRN MAMM (CAD)W/FERNIE BILAT IMPRESSION: Stable bilateral screening mammogram. Yearly follow-up mammogram recommended. (A) ASSESSMENT CATEGORY: BIRADS Category 2: Benign. A letter regarding these results will be sent to the patient by the facility within 30 days. Approximately 10% of breast cancers are not detected by mammography. A normal mammogram should not delay biopsy of a clinically suspicious abnormality. [id number] Electronically Signed: Rene Chowdary MD at 13:22 EDT ,
== END | disposition home or self-care (01) ==
LOC: OPBI 12:31
PROVIDERS: PCP Family Medicine; Referring Provider Family Medicine; Visit Provider Family Medicine
DX: Z12.31 Encounter for screening mammogram for malignant neoplasm of breast (principal)
CPT/HCPCS: 77063; 77067

== ENCOUNTER → 2023-06-26 | Outpatient (CLI) | payer MEDICARE, OTHER, SELFPAY ==
[2023-06-26 12:39] LABS: Absolute Lymphocyte Count 1.95 X10^3/uL (0.83-4.51); Absolute Neutrophil Count 5.3 X10^3/uL (2.0-7.7); Basophil# 0.09 X10^3/uL; Eosinophil# 0.35 X10^3/uL; Eosinophils% 4.1 % (0-5); Hematocrit 46.2 % (37-47); Hemoglobin 15.2 g/dL (12.0-15.0); Lymphocyte # 1.95 X10^3/ul (0.83-4.51); Lymphocyte % 22.7 % (19-41); Mean Corp Hgb Conc 32.9 g/dL (32-36); Mean Corpuscular Hgb 28.4 pg (27.0-32.0); Mean Corpuscular Volume 86.2 fL (81-99); Monocyte# 0.81 X10^3/uL; Monocyte% 9.4 % (0-10); NRBC Flagged by Analyzer 0 % (0-5); Neutrophil # 5.34 X10^3/uL (2.7-7.7); Neutrophil % 62.2 % (47-70); Platelet Count 228 K/mm3 (150-450); RBC Distribution Width CV 12.8 % (11.6-14.6); RBC Distribution Width SD 40.2 fl (35.1-43.9); Red Blood Count 5.36 M/mm3 (4.2-5.4); White Blood Count 8.6 K/mm3 (4.4-11.0)
[2023-06-26 13:02] LABS: Vitamin D,25 Hydroxy 99.4 ng/mL
[2023-06-26 13:05] LABS: AST(SGOT) 17 U/L (15-37); Alanine Aminotransfer ALT/SGPT 21 U/L (13-56); Albumin, Serum 3.5 g/dL (3.2-5.0); Alkaline Phosphatase 81 U/L (45-117); Anion Gap 5 (5-15); BUN 18 mg/dL (7-18); BUN/Creat Ratio 26.4 RATIO (10-20); Calcium,Total 9.4 mg/dL (8.5-10.1); Chloride 97 mmol/L (98-107); Cholesterol 165 mg/dL (200); Creatinine, Serum 0.68 mg/dL (0.55-1.02); EST Glomerular Filtration Rate 90 mL/min (>60); Est Glom Filt Rate - Afr Amer 109 mL/min (>60); Ferritin 191 ng/mL (8-252); Globulin 3.5 g/dL (2.2-4.2); Glucose 144 mg/dL (74-106); High Density Lipoprotein 58 mg/dL; Iron 93 ug/dL (50-170); Iron Binding Capacity,Total 347 ug/dL (250-450); Potassium 3.8 mmol/L (3.5-5.1); Sodium Level 133 mmol/L (136-145); Triglycerides 119 mg/dL; Very Low Density Lipoprotein 24 mg/dL (5-40)
[2023-06-26 13:41] LABS: Hemoglobin A1c 6.5 % (3.8-5.6)
[2023-06-27 05:07] LABS: Transferrin 251 mg/dL (192-364)
== END | disposition home or self-care (01) ==
LOC: MFPLAB 10:32
PROVIDERS: PCP Family Medicine; Visit Provider Family Medicine
DX: E11.9 Type 2 diabetes mellitus without complications (principal); D75.1 Secondary polycythemia; E55.9 Vitamin D deficiency, unspecified
CPT/HCPCS: 36415; 80053; 80061; 82306; 82728; 83036; 83540; 83550; 84466; 85025

== ENCOUNTER → 2023-07-10 | Outpatient (CLI) | payer MEDICARE, OTHER, SELFPAY ==
[2023-07-10 10:43] LABS: Anion Gap 4 (5-15); BUN 26 mg/dL (7-18); BUN/Creat Ratio 35.2 RATIO (10-20); Calcium,Total 9.3 mg/dL (8.5-10.1); Chloride 99 mmol/L (98-107); Creatinine, Serum 0.74 mg/dL (0.55-1.02); EST Glomerular Filtration Rate 82 mL/min (>60); Est Glom Filt Rate - Afr Amer 100 mL/min (>60); Glucose 157 mg/dL (74-106); Potassium 3.7 mmol/L (3.5-5.1); Sodium Level 133 mmol/L (136-145)
== END | disposition home or self-care (01) ==
LOC: MFPLAB 09:26
PROVIDERS: PCP Family Medicine; Visit Provider Family Medicine
DX: E87.6 Hypokalemia (principal)
CPT/HCPCS: 36415; 80048

== ENCOUNTER → 2023-08-31 | Outpatient (CLI) | payer MEDICARE, OTHER, SELFPAY ==
--- OUTSIDE RECORDS SUMMARY | 2023-08-31 10:32 | XMS RPT_ITS | CCD ---
Author Name Unknown Address [address] [place] [address] Organization [facility] Care Team Providers Care Market Development Trainer Name Role Phone Salina Wiseman Primary Care Provider DOMINGO RODRIGUEZ Attending Unavailable SALINA WISEMAN Primary Care Unavailabl e Allergies Allergy Classification Reported Allergen(s) Allergy Type Date of Onset Reaction(s) Facility (2 sources) amLODIPine; Translations: [AMLODIPINE] Drug Allergy 12-05-2022 [facility] (2 sources) Lisinopril; Translations: [LISINOPRIL] Drug Allergy 12-05-2022 [facility] Medications Completed/Discontinued Medications Medication Drug Class(es) Dates Sig (Normalized) Sig (Original) [id number] 200 actuat albuterol 0.09 mg/actuat metered dose inhaler (1 source) beta2-Adrenergic Agonist take 4 puff(s) by inhalation every six hours as needed for wheezing albuterol HFA (PROVENTIL HFA) inhaler Inhale 4 Puffs as instructed every 6 hours as needed for wheezing/shortness of breath. 0 Active Problems Problem Classification Problem Date Documented Da te Episodic/Chronic Thyroid disorders (1 source) Multinodular goiter; Translations: [Nontoxic multinodular goiter] Chronic Results Test Name Value Interpretation Reference Range Facil ity Vital Signs Date Time Vital Sign Value Performing Clinician Faci lity 12-08-2022 15:44-0400 Body height 170.2 cm Domingo Rodriguez MD Work Phone: [facility] 12-08-2022 15:44-0400 Body temperature 98.71 [degF] Domingo Rodriguez MD Work Phone: [facility] 12-08-2022 15:44-0400 Body weight 101.88 kg Domingo Rodriguez MD Work Phone: [facility] 12-08-2022 15:44-0400 Diastolic blood pressure 88 mm[Hg] Domingo Rodriguez MD Work Phone: [facility] 12-08-2022 15:44-0400 Heart rate 88 /min Domingo Rodriguez MD Work Phone: [facility] 12-08-2022 15:44-0400 SaO2% (BldA) [Mass fraction] 100 % Domingo Rodriguez MD Work Phone: [facility] 12-08-2022 15:44-0400 Systolic blood pressure 142 mm[Hg] Domingo Rodriguez MD Work Phone: [facility] Encounters Encounter Date Encounter Type Care Provider Facility Start: 12-08-2022 End: 12-09-2022 ambulatory DOMINGO RODRIGUEZ Facility:[facility] Start: 12-08-2022 End: 12-08-2022 Patient encounter procedure Domingo Rodriguez MD Work Phone: General Surgery Plan of Treatment Date Care Activity Detail Author Start: 06-10-2023 LIPID SCREEN LIPID SCREEN [facility] Start: 08-17-2022 ADVANCE DIRECTIVE DISCUSSION ADVANCE DIRECTIVE DISCUSSION [facility] Start: 08-17-2022 DEPRESSION ASSESSMENT DEPRESSION ASS ESSMENT [facility] Start: 09-23-2021 COVID-19 VACCINE (3 - Booster) COVID-19 VACCINE (3 - Booster) [facility] Start: 2017 BONE DENSITY BONE DENSITY [facility] Start: 2017 PNEUMOCOCCAL: 65+ (1 - PCV) PNEUMOCOCCAL: 65+ (1 - PCV) [facility] Start: 2002 SHINGRIX VACCINE (1 of 2) SHINGRIX V ACCINE (1 of 2) [facility] Start: 1997 COLOGUARD (FIT-DNA) COLOGUARD (FIT-D NA) [facility] Start: 1997 Colonoscopy COLONOSCOPY [facility] Start: 1997 COLORECTAL CANCER SCREENING COLORECTAL CANCER SCREENING [facility] Start: [address] COLONOGRAPHY [facility] Start: 1997 DIABETES SCREEN [facility]CREEN [facility] Start: 1997 FECAL OCCULT BLOOD FECAL OCCULT BLOO D [facility] Start: 1997 SIGMOIDOSCOPY SIGMOIDOSCOPY [facility] Start: 1992 Mammography MAMMOGRAM [facility] Start: 1971 Urine microalbumin profile DTAP,TDAP ,TD (1 - Tdap) [facility] Start: 1970 HEPATITIS C SCREENING HEPATITIS C JENNIFER LOPEZ [facility] Payers Date Payer Category Payer Private Health Insurance [facility] AARP SUPPLEMENT [id number] 2022-Present [phone] [address] [place] [address] Indemnity [id number] 2022 Unknown [id number] 2017 Medicare MEDICARE MEDICAR E A AND B [id number] 2017-Present [phone] [address] [address] [place] [address] Medicare [id number] 2017 Medicare [id number] Social History Date Type Detail Facility Start: 12-08-2022 Tobacco smoking stat [facility] Never smoked tobacco [facility] Start: 12-08-2022 Tobacco use and exposure Smoke less tobacco non-user [facility] Start: 12-08-2022 Alcohol intake Current drinke r of alcohol (finding) [facility] Start: 12-08-2022 Alcohol Comment social [facility] Start: 1950 Sex Assigned At Female C [facility] Progress note 12-24-2022 Note Date & Type Note Facility 12-24-2022 Note HNO ID: [id number] Author: Domingo Rodriguez MD Service: ? Author Type: Physician Type: Progress Notes Filed: 12/24/2022 2:48 PM Note Text: HISTORY AND PHYSICAL Ronald Padilla 1950 REFERRING PHYSICIAN: Salina Wiseman MD CHIEF COMPLAINT: Consult (Abnormal thyroid ultrasound) HPI: The patient is a 72 year old female with a complaint of a bilateral thyroid nodule. This thyroid nodule was found on Ultrasound by [facility]. The patient denies pain, denies difficulty swallowing, deniesrapid enlargement of the neck, deniesdysphagia, denies a change in the voice, denies hot or cold intolerence. The patient has not a prior history of neck radiation treatment. The patient is being seen by me today at the request of Dr. Salina Wiseman MD for my opinion and advice regarding Multinodular goiter (primary encounter diagnosis). PAST MEDICAL HISTORY Diagnosis Date Diabetes mellitus (HCC) Essential hypertension Mixed hyperlipidemia Multiple thyroid nodules LYNDA on CPAP Polycythemia PAST SURGICAL HISTORY Procedure Laterality Date LIGATE FALLOPIAN TUBE Current Outpatient Medications Medication Sig Dispense Refill calcium carbonate/vitamin D3 (CALCIUM 500 + D, D3, ORAL) Take 1,000 mg by mouth once daily. cyanocobalamin (VITAMIN B-12) 500 mcg tablet Take 1 tablet by mouth once daily. metFORMIN-blood sugar diagnost 500 mg cptr 500 mg twice daily. rosuvastatin (CRESTOR) 10 mg tablet Take 10 mg by mouth once daily. meloxicam (MOBIC) 15 mg tablet Take 15 mg by mouth once daily. losartan (COZAAR) 100 mg tablet Take 100 mg by mouth once daily. chlorthalidone (HYGROTON) 25 mg tablet Take 25 mg by mouth once daily. carvedilol (COREG) 12.5 mg tablet Take 12.5 mg by mouth twice daily with meals. spironolactone (ALDACTONE) 25 mg tablet Take 25 mg by mouth once daily. cholecalciferol (VITAMIN D3) 5,000 unit tab Take 5,000 Units by mouth once daily. albuterol HFA (PROVENTIL HFA) inhaler Inhale 4 Puffs as instructed every 6 hours as needed for wheezing/shortness of breath. zinc sulfate (ZINC-15 ORAL) Take 1 tablet by mouth. Multivitamin capsule Take 1 capsule by mouth once daily. Ascorbic Acid 500 mg chew Take 500 mg by mouth once daily. ubidecarenone (ULTRA COQ10 ORAL) Take 10 mg by mouth once daily. No current facility-administered medications for this visit. ALLERGIES: Amlodipine and Lisinopril PERSONAL HISTORY: Social History Tobacco Use Smoking status: Never Smokeless tobacco: Never Vaping Use Vaping Use: Never used Substance Use Topics Alcohol use: Yes Comment: social Drug use: Never FAMILY HISTORY: FAMILY HISTORY Problem Relation Age of Onset Hypothyroidism Mother Hypertension Mother Hyperlipidemia Mother Hypertension Father Renal Cell Cancer Father Brain Cancer Sister glioblastoma REVIEW OF SYMPTOMS: The review of systems data was entered by the nurse and reviewed by me Nursing Notes: Myesha Shelley RN 12/08/2022 3:52 PM Signed REVIEW OF SYSTEMS: General: The patient NOTES fatigue, denies weight loss, NOTES weight gain, denies feeling hot, and NOTES feelings of cold. Eyes: The patient denies glaucoma, denies eye injury/surgery, does not wear glasses or contacts. Ear/Nose/Throat: The patient NOTES allergies, denies hayfever, denies ear infections, and denies bloody noses. Cardiovascular: The patient denies chest pain, denies heart disease, NOTES high blood pressure,denies cardiac stent, denies prior heart attack, NOTES irregular heart beat, NOTES high cholesterol, denies poor circulation, denies heart failure, other cardiac issues, denies claudication, denies cold feet, denies peripheral arterial stent. Respiratory: The patient denies tuberculosis, denies pneumonia, denies frequent cough, denies pulmonary embolism, denies shortness of breath, and denies coughing up blood. Gastrointestinal: The patient denies difficulty swallowing, denies acid reflux, denies ulcers, denies vomiting, denies jaundice/hepatitis, denies gallbladder problems, denies black or tarry stools, denies hemorrhoids, denies bleeding from rectum, denies diverticulitis, denies constipation, denies diarrhea, denies loss of stool control, and denies hernias. Kidney/Bladder: The patient denies kidney stones, denies urine infections, and denies bloody urine. Skin: The patient denies a history of skin cancer, denies bleeding/changing moles, and denies a history of skin rash. Neurologic: The patient denies a history of epilepsy/convulsions, denies headaches, denies head/spinal injuries, and denies stroke/TIA. Psychiatric: The patient denies psychiatric medications, NOTES depression, and denies voices, denies substance abuse. Endocrine: The patient NOTES thyroid disorders, NOTES diabetes, and denies hormonal problems. Hematologic: The patient denies a history of bruising, denies bleeding, and denies anemia, denies blood clots. Infections: The patient (more content not included)... [facility] History of Present illness Narrative 12-24-2022 Domingo Rodriguez MD - 12/24/2022 2:40 PM EDT Note Date & Type Note Facility 12-24-2022 History of Presen t illness Narrative HISTORY AND PHYSICAL Ronald Padilla 1950 REFERRING PHYSICIAN: Salina Wiseman MD CHIEF COMPLAINT: Consult (Abnormal thyroid ultrasound) HPI: The patient is a 72 year old female with a complaint of a bilateral thyroid nodule. This thyroid nodule was found on Ultrasound by [facility]. The patient denies pain, denies difficulty swallowing, deniesrapid enlargement of the neck, deniesdysphagia, denies a change in the voice, denies hot or cold intolerence. The patient has not a prior history of neck radiation treatment. The patient is being seen by me today at the request of Dr. Salina Wiseman MD for my opinion and advice regarding Multinodular goiter (primary encounter diagnosis). PAST MEDICAL HISTORY Diagnosis Date Diabetes mellitus (HCC) Essential hypertension Mixed hyperlipidemia Multiple thyroid nodules LYNDA on CPAP Polycythemia PAST SURGICAL HISTORY Procedure Laterality Date LIGATE FALLOPIAN TUBE Current Outpatient Medications Medication Sig Dispense Refill calcium carbonate/vitamin D3 (CALCIUM 500 + D, D3, ORAL) Take 1,000 mg by mouth once daily. cyanocobalamin (VITAMIN B-12) 500 mcg tablet Take 1 tablet by mouth once daily. metFORMIN-blood sugar diagnost 500 mg cptr 500 mg twice daily. rosuvastatin (CRESTOR) 10 mg tablet Take 10 mg by mouth once daily. meloxicam (MOBIC) 15 mg tablet Take 15 mg by mouth once daily. losartan (COZAAR) 100 mg tablet Take 100 mg by mouth once daily. chlorthalidone (HYGROTON) 25 mg tablet Take 25 mg by mouth once daily. carvedilol (COREG) 12.5 mg tablet Take 12.5 mg by mouth twice daily with meals. spironolactone (ALDACTONE) 25 mg tablet Take 25 mg by mouth once daily. cholecalciferol (VITAMIN D3) 5,000 unit tab Take 5,000 Units by mouth once daily. albuterol HFA (PROVENTIL HFA) inhaler Inhale 4 Puffs as instructed every 6 hours as needed for wheezing/shortness of breath. zinc sulfate (ZINC-15 ORAL) Take 1 tablet by mouth. Multivitamin capsule Take 1 capsule by mouth once daily. Ascorbic Acid 500 mg chew Take 500 mg by mouth once daily. ubidecarenone (ULTRA COQ10 ORAL) Take 10 mg by mouth once daily. No current facility-administered medications for this visit. ALLERGIES: Amlodipine and Lisinopril PERSONAL HISTORY: Social History Tobacco Use Smoking status: Never Smokeless tobacco: Never Vaping Use Vaping Use: Never used Substance Use Topics Alcohol use: Yes Comment: social Drug use: Never FAMILY HISTORY: FAMILY HISTORY Problem Relation Age of Onset Hypothyroidism Mother Hypertension Mother Hyperlipidemia Mother Hypertension Father Renal Cell Cancer Father Brain Cancer Sister glioblastoma REVIEW OF SYMPTOMS: The review of systems data was entered by the nurse and reviewed by me Nursing Notes: Myesha Shelley RN 12/08/2022 3:52 PM Signed REVIEW OF SYSTEMS: General: The patient NOTES fatigue, denies weight loss, NOTES weight gain, denies feeling hot, and NOTES feelings of cold. Eyes: The patient denies glaucoma, denies eye injury/surgery, does not wear glasses or contacts. Ear/Nose/Throat: The patient NOTES allergies, denies hayfever, denies ear infections, and denies bloody noses. Cardiovascular: The patient denies chest pain, denies heart disease, NOTES high blood pressure,denies cardiac stent, denies prior heart attack, NOTES irregular heart beat, NOTES high cholesterol, denies poor circulation, denies heart failure, other cardiac issues, denies claudication, denies cold feet, denies peripheral arterial stent. Respiratory: The patient denies tuberculosis, denies pneumonia, denies frequent cough, denies pulmonary embolism, denies shortness of breath, and denies coughing up blood. Gastrointestinal: The patient denies difficulty swallowing, denies acid reflux, denies ulcers, denies vomiting, denies jaundice/hepatitis, denies gallbladder problems, denies black or tarry stools, denies hemorrhoids, denies bleeding from rectum, denies diverticulitis, denies constipation, denies diarrhea, denies loss of stool control, and denies hernias. Kidney/Bladder: The patient denies kidney stones, denies urine infections, and denies bloody urine. Skin: The patient denies a history of skin cancer, denies bleeding/changing moles, and denies a history of skin rash. Neurologic: The patient denies a history of epilepsy/convulsions, denies headaches, denies head/spinal injuries, and denies stroke/TIA. Psychiatric: The patient denies psychiatric medications, NOTES depression, and denies voices, denies substance abuse. Endocrine: The patient NOTES thyroid disorders, NOTES diabetes, and denies hormonal problems. Hematologic: The patient denies a history of bruising, denies bleeding, and denies anemia, denies blood clots. Infections: The patient NOTES a history of measles and mumps, denies rheumatic fever, and denies sexually transmitted diseases. Musculoskeletal: The patient denies back pain/injury, denies back problems, NOTES sciatica, denies knee/foot trouble, NOTES arthritis, or denies gout. When was patient's last Mammogram screening? 03/2022 Last Colonoscopy: 2019 Myesha Shelley RN PHYSICAL EXAMINATION: General: The patient is 72 year old female, well nourished, well hydrated in no acute distress. The patient is oriented to time, place, and person. VITALS: Blood pressure 142/88, pulse 88, temperature 37.1 C (98.7 F), height 170.2 cm (5' 7 ), weight 101.9 kg (224 lb 9.6 oz), SpO2 100 %. Body mass index is 35.18 kg/m . HEENT: Normal cephalic, ataumatic, pupils are equally round, sclera are anicteric, mucous membranes are moist, oropharynx is clear. Neck has no masses, asymmetry or lymphadenopathy. Thyroid exam no hard palpable nodules are identified. Respiratory: Clear to auscultation and percussion. Normal respiratory excursion and pattern. Cardiac: Examination is regular rate and rhythm. Abdominal exam: Soft, nontender, with no palpable masses. No hepatosplenomegaly. No palpable hernias. Rectal exam: exam deferred Extremities: no clubbing, cyanosis or edema. No adenopathy. Other: LABORATORY VALUES: As Noted RADIOLOGIC STUDIES: As Noted Assessment IMPRESSION: NODULE - bilateral THYROID PLAN: I reviewed the images and I agree with the readings at this time I think repeating the ultrasound is what is needed. I do not think fine-needle aspirations are needed at this time. Diagnoses: (E04.2) Multinodular goiter (primary encounter diagnosis) A letter was sent to Dr. Salina Wiseman MD indicating the above finding for this patient. Return to Clinic: The patient is instructed to follow-up with me in 1 year. Domingo Rodriguez III, MD documented in this encounter [facility] Nurse Note 12-08-2022 Myesha Shelley RN - 12/08/2022 3:50 PM EDT Note Date & Type Note Facility 12-08-2022 Nurse Note REVIEW OF SYSTEMS: General: The patient NOTES fatigue, denies weight loss, NOTES weight gain, denies feeling hot, and NOTES feelings of cold. Eyes: The patient denies glaucoma, denies eye injury/surgery, does not wear glasses or contacts. Ear/Nose/Throat: The patient NOTES allergies, denies hayfever, denies ear infections, and denies bloody noses. Cardiovascular: The patient denies chest pain, denies heart disease, NOTES high blood pressure,denies cardiac stent, denies prior heart attack, NOTES irregular heart beat, NOTES high cholesterol, denies poor circulation, denies heart failure, other cardiac issues, denies claudication, denies cold feet, denies peripheral arterial stent. Respiratory: The patient denies tuberculosis, denies pneumonia, denies frequent cough, denies pulmonary embolism, denies shortness of breath, and denies coughing up blood. Gastrointestinal: The patient denies difficulty swallowing, denies acid reflux, denies ulcers, denies vomiting, denies jaundice/hepatitis, denies gallbladder problems, denies black or tarry stools, denies hemorrhoids, denies bleeding from rectum, denies diverticulitis, denies constipation, denies diarrhea, denies loss of stool control, and denies hernias. Kidney/Bladder: The patient denies kidney stones, denies urine infections, and denies bloody urine. Skin: The patient denies a history of skin cancer, denies bleeding/changing moles, and denies a history of skin rash. Neurologic: The patient denies a history of epilepsy/convulsions, denies headaches, denies head/spinal injuries, and denies stroke/TIA. Psychiatric: The patient denies psychiatric medications, NOTES depression, and denies voices, denies substance abuse. Endocrine: The patient NOTES thyroid disorders, NOTES diabetes, and denies hormonal problems. Hematologic: The patient denies a history of bruising, denies bleeding, and denies anemia, denies blood clots. Infections: The patient NOTES a history of measles and mumps, denies rheumatic fever, and denies sexually transmitted diseases. Musculoskeletal: The patient denies back pain/injury, denies back problems, NOTES sciatica, denies knee/foot trouble, NOTES arthritis, or denies gout. When was patient's last Mammogram screening? 03/2022 Last Colonoscopy: 2018 Myesha Shelley RN documented in this encounter [facility] Evaluation note Note Date & Type Note Facility documented in this encounter [facility] Summary Purpose Family History No Family History Records Found Advance Directives No Advanced Directives Records Found Additional Source Comments Source Comments (unrecognize d section and content) In the event this informatio n is protected by the Federal Confidentiality of Alcohol and Drug Abuse Patient Records regulations: The Federal rules restrict any use of the information to criminally investigate or prosecute any alcohol or drug abuse patient.[facility] Reason for Visit (unrecogniz ed section and content) Care Teams (unrecognized sec tion and content) INFORMATION SOURCE (unrecogn ized section and content) FOR RECORDS PERTAINING TO PATIENTS WHO ARE OR HAVE BEEN ENROLLED IN A CHEMICAL DEPENDENCY/SUBSTANCEABUSE PROGRAM, SOME INFORMATION MAY BE OMITTED. This clinical summary was aggregated from multiple sources. Caution should be exercised in using it in the provision of clinical care. This summary normalizes information from multiple sources, and as a consequence, information in this document may materially change the coding, format and clinical context of patient data. In addition, data may be omitted in some cases. CLINICAL DECISIONS SHOULD BE BASED ON THE PRIMARY CLINICAL RECORDS. [facility] [employer] [facility]. provides no warranty or guarantee of the accuracy or completeness of information in this document.
== END | disposition home or self-care (01) ==
LOC: LABSPEC 10:12
PROVIDERS: PCP Family Medicine; Referring Provider Nurse Practitioner Family; Visit Provider Nurse Practitioner Family
DX: N39.0 Urinary tract infection, site not specified (principal)
CPT/HCPCS: 87077; 87086; 87088; 87186

== ENCOUNTER → 2023-10-21 | Outpatient (CLI) | payer MEDICARE, OTHER, SELFPAY ==
--- NOTE | 2023-10-21 15:55 | BD_ITS ---
STUDY: DUAL ENERGY X-RAY ABSORPTIOMETRY / DXA REASON FOR EXAM: Female, 73 years old. Z78.0 TECHNIQUE: Bone Mineral Density (BMD) measurements of lumbar spine and bilateral hips were obtained. COMPARISON: None. FINDINGS: Lumbar Spine (L1-L4): g/cm2 (1.099) / T-score (0.5) / Z-score (2.7) Findings are suggestive of normal bone density with a low fracture risk. Left Femur Total: g/cm2 (0.856) / T-score (-0.7) / Z-score (0.9) Left Femoral Neck: g/cm2 (0.800) / T-score (-0.4) / Z-score (1.4) Right Femur Total: g/cm2 (0.802) / T-score (-1.1) / Z-score (0.4) Right Femoral Neck: g/cm2 (0.660) / T-score (-1.7) / Z-score (0.2) BD/Dexa Bone Density Study IMPRESSION: The patient is considered osteopenic as outlined below according to World Jonnie Organization (WHO) criteria with a moderate fracture risk. Reference Information: The T-score is the number of standard deviations above or below the standard which is normal for young adults at their peak bone mineral density. The World Health Organization (WHO) interprets the T-scores as follows: Above -1 Normal bone density Between -1 and -2.5 Osteopenia Equal to / or below -2.5 Osteoporosis As a practical clinical guideline, osteopenia may be graded as follows: Mild -1 through -1.5 Moderate -1.6 through -2.0 Severe -2.1 through -2.4 The Z-score is the number of standard deviations above or below age-matched controls. A Z-score of less than -1.5 would be considered abnormal. References: 1. NIH Osteoporosis and Related Bone Diseases www osteo.org 2. International Society for Clinical Densitometry www iscd.org 3. National Osteoporosis Foundation www nof.org Electronically Signed: Rene Chowdary MD at 15:13 EDT ,
== END | disposition home or self-care (01) ==
LOC: OPBD 15:48
PROVIDERS: PCP Family Medicine; Referring Provider Family Medicine; Visit Provider Family Medicine
DX: Z78.0 Asymptomatic menopausal state (principal)
CPT/HCPCS: 77080

== ENCOUNTER → 2023-12-08 | Outpatient (CLI) | payer MEDICARE, OTHER, SELFPAY ==
[2023-12-08 17:32] LABS: Absolute Lymphocyte Count 2.23 X10^3/uL (0.83-4.51); Absolute Neutrophil Count 6.4 X10^3/uL (2.0-7.7); Basophil# 0.08 X10^3/uL; Basophil% 0.8 % (0-1); Eosinophil# 0.29 X10^3/uL; Hematocrit 43.6 % (37-47); Hemoglobin 14.8 g/dL (12.0-15.0); Lymphocyte # 2.23 X10^3/ul (0.83-4.51); Lymphocyte % 22.7 % (19-41); Mean Corp Hgb Conc 33.9 g/dL (32-36); Mean Corpuscular Hgb 28.5 pg (27.0-32.0); Mean Platelet Vol. 11.1 fl (6.2-12.0); Monocyte# 0.85 X10^3/uL; Monocyte% 8.6 % (0-10); NRBC Flagged by Analyzer 0 % (0-5); Neutrophil # 6.35 X10^3/uL (2.7-7.7); Neutrophil % 64.6 % (47-70); Platelet Count 227 K/mm3 (150-450); RBC Distribution Width CV 12.7 % (11.6-14.6); RBC Distribution Width SD 38.8 fl (35.1-43.9); Red Blood Count 5.19 M/mm3 (4.2-5.4); White Blood Count 9.8 K/mm3 (4.4-11.0)
[2023-12-08 18:08] LABS: Vitamin D,25 Hydroxy 55.7 ng/mL
[2023-12-08 19:00] LABS: Microalbumin,Random Urine 8.4 mg/L (NO RANGE EST.); Microalbumin:Creatinine Ratio 9.6 mg/g CRE (<30 mg/g CRE)
[2023-12-08 19:35] LABS: ALB/GLOB Ratio 1.1 RATIO (0.9-2.4); AST(SGOT) 19 U/L (15-37); Alanine Aminotransfer ALT/SGPT 24 U/L (13-56); Albumin, Serum 3.6 g/dL (3.2-5.0); Alkaline Phosphatase 67 U/L (45-117); Anion Gap 8 (5-15); BUN 20 mg/dL (7-18); BUN/Creat Ratio 26.5 RATIO (10-20); Calcium,Total 9.4 mg/dL (8.5-10.1); Chloride 99 mmol/L (98-107); Cholesterol 173 mg/dL (200); Creatinine, Serum 0.76 mg/dL (0.55-1.02); EST Glomerular Filtration Rate 80 mL/min (>60); Est Glom Filt Rate - Afr Amer 97 mL/min (>60); Globulin 3.3 g/dL (2.2-4.2); Glucose 205 mg/dL (74-106); High Density Lipoprotein 55 mg/dL; Potassium 3.5 mmol/L (3.5-5.1); Protein, Total 6.9 g/dL (6.4-8.2); Sodium Level 135 mmol/L (136-145); Thyroid Stim Hormone (TSH) 1.17 uIU/mL (0.358-3.74); Triglycerides 248 mg/dL; Very Low Density Lipoprotein 50 mg/dL (5-40)
[2023-12-08 20:01] LABS: Hemoglobin A1c 7.2 % (3.8-5.6)
== END | disposition home or self-care (01) ==
LOC: MFPLAB 14:28
PROVIDERS: PCP Family Medicine; Visit Provider Family Medicine
DX: E11.9 Type 2 diabetes mellitus without complications (principal); E55.9 Vitamin D deficiency, unspecified
CPT/HCPCS: 36415; 80053; 80061; 82043; 82306; 82570; 83036; 84443; 85025

== ENCOUNTER → 2024-04-08 | Outpatient (CLI) | payer MEDICARE, OTHER, SELFPAY ==
[2024-04-08 15:10] LABS: Absolute Lymphocyte Count 2.23 X10^3/uL (0.83-4.51); Basophil# 0.06 X10^3/uL; Basophil% 0.6 % (0-1); Eosinophil# 0.32 X10^3/uL; Eosinophils% 3.4 % (0-5); Hematocrit 44.7 % (37-47); Hemoglobin 14.9 g/dL (12.0-15.0); Lymphocyte # 2.23 X10^3/ul (0.83-4.51); Lymphocyte % 23.5 % (19-41); Mean Corp Hgb Conc 33.3 g/dL (32-36); Mean Corpuscular Hgb 28.4 pg (27.0-32.0); Mean Corpuscular Volume 85.3 fL (81-99); Mean Platelet Vol. 11.1 fl (6.2-12.0); Monocyte% 8.4 % (0-10); NRBC Flagged by Analyzer 0 % (0-5); Neutrophil % 63.5 % (47-70); Platelet Count 237 K/mm3 (150-450); RBC Distribution Width CV 12.6 % (11.6-14.6); RBC Distribution Width SD 38.9 fl (35.1-43.9); Red Blood Count 5.24 M/mm3 (4.2-5.4); White Blood Count 9.5 K/mm3 (4.4-11.0)
[2024-04-08 15:16] LABS: Vitamin D,25 Hydroxy 73.5 ng/mL
[2024-04-08 15:21] LABS: Hemoglobin A1c 8.6 % (3.8-5.6)
[2024-04-08 15:35] LABS: AST(SGOT) 21 U/L (15-37); Alanine Aminotransfer ALT/SGPT 26 U/L (13-56); Albumin, Serum 3.5 g/dL (3.2-5.0); Alkaline Phosphatase 73 U/L (45-117); Anion Gap 10 (5-15); BUN 16 mg/dL (7-18); BUN/Creat Ratio 24.2 RATIO (10-20); Calcium,Total 9.4 mg/dL (8.5-10.1); Chloride 98 mmol/L (98-107); Cholesterol 184 mg/dL (200); Creatinine, Serum 0.66 mg/dL (0.55-1.02); EST Glomerular Filtration Rate 93 mL/min (>60); Est Glom Filt Rate - Afr Amer 113 mL/min (>60); Globulin 3.4 g/dL (2.2-4.2); Glucose 189 mg/dL (74-106); High Density Lipoprotein 60 mg/dL; Potassium 3.8 mmol/L (3.5-5.1); Protein, Total 6.9 g/dL (6.4-8.2); Sodium Level 133 mmol/L (136-145); Triglycerides 185 mg/dL; Very Low Density Lipoprotein 37 mg/dL (5-40)
== END | disposition home or self-care (01) ==
LOC: MFPLAB 11:43
PROVIDERS: PCP Family Medicine; Visit Provider Family Medicine
DX: E11.8 Type 2 diabetes mellitus with unspecified complications (principal); E55.9 Vitamin D deficiency, unspecified
CPT/HCPCS: 36415; 80053; 80061; 82306; 83036; 85025

== ENCOUNTER → 2024-05-24 | Outpatient (CLI) | payer MEDICARE, OTHER, SELFPAY ==
[2024-05-24 12:54] LABS: Bacteria 0 SEEN /hpf (None Seen); Mucous, Urine 0 SEEN /hpf (<or=2+); Squamous Epithelial Cells - UA 0 SEEN /hpf (5-10)
[2024-05-24 13:04] LABS: Color, Urine Yellow (Yellow); Glucose, Dipstick 250 mg/dl (Normal); Ketone-Dipstick Negative (Negative); Leukocyte Esterase-Dipstick 100 /ul (Negative); Nitrite-Dipstick Positive (Negative); Occult Blood-Urine 250 /ul (Negative); Protein-Dipstick 30 mg/dl (Negative); Urine Clarity Sl. Cloudy (Clear); Urine Urobilinogen 8 mg/dl (Normal)
[2024-05-24 13:09] LABS: Urine Bilirubin Dipstick 3 mg/dL (Negative)
[2024-05-24 13:27] LABS: Red Blood Cells-Urine 5-10 SEEN /hpf (0-5); White Blood Cells 10-25 SEEN /hpf (0-5)
== END | disposition home or self-care (01) ==
LOC: LABSPEC 12:35
PROVIDERS: PCP Family Medicine; Referring Provider Nurse Practitioner Family; Visit Provider Nurse Practitioner Family
DX: R30.0 Dysuria (principal)
CPT/HCPCS: 81001; 87077; 87086; 87088; 87186

== ENCOUNTER → 2024-06-27 | Outpatient (CLI) | payer MEDICARE, OTHER, SELFPAY | END | disposition home or self-care (01) | LOC: OPBI 12:57 | PROVIDERS: PCP Family Medicine; Referring Provider Family Medicine; Visit Provider Family Medicine | DX: Z12.31 Encounter for screening mammogram for malignant neoplasm of breast (principal) | CPT/HCPCS: 77063; 77067 ==

== ENCOUNTER → 2024-07-26 | Outpatient (CLI) | payer MEDICARE, OTHER, SELFPAY ==
[2024-07-26 11:27] LABS: Mucous, Urine 0 SEEN /hpf (<or=2+); Red Blood Cells-Urine 0 SEEN /hpf (0-5); Squamous Epithelial Cells - UA 0 SEEN /hpf (5-10); White Blood Cells 0 SEEN /hpf (0-5)
[2024-07-26 15:26] LABS: Color, Urine Yellow (Yellow); Glucose, Dipstick 1000 mg/dl (Normal); Ketone-Dipstick Negative (Negative); Leukocyte Esterase-Dipstick Negative /ul (Negative); Nitrite-Dipstick Negative (Negative); Occult Blood-Urine Negative /ul (Negative); Protein-Dipstick 15 mg/dl (Negative); Specific Gravity, Urine 1.015 (1.002-1.030); Urine Bilirubin Dipstick Negative (Negative); Urine Clarity Sl. Cloudy (Clear); Urine Urobilinogen Normal (Normal)
[2024-07-26 15:29] LABS: Absolute Lymphocyte Count 2.32 X10^3/uL (0.83-4.51); Absolute Neutrophil Count 6.6 X10^3/uL (2.0-7.7); Basophil# 0.09 X10^3/uL; Basophil% 0.9 % (0-1); Eosinophil# 0.27 X10^3/uL; Eosinophils% 2.6 % (0-5); Hematocrit 49.3 % (37-47); Hemoglobin 16.2 g/dL (12.0-15.0); Lymphocyte # 2.32 X10^3/ul (0.83-4.51); Lymphocyte % 22.8 % (19-41); Mean Corp Hgb Conc 32.9 g/dL (32-36); Mean Corpuscular Hgb 28.1 pg (27.0-32.0); Mean Corpuscular Volume 85.6 fL (81-99); Mean Platelet Vol. 10.7 fl (6.2-12.0); Monocyte# 0.85 X10^3/uL; Monocyte% 8.3 % (0-10); NRBC Flagged by Analyzer 0 % (0-5); Neutrophil # 6.62 X10^3/uL (2.7-7.7); Platelet Count 248 K/mm3 (150-450); RBC Distribution Width CV 13.9 % (11.6-14.6); RBC Distribution Width SD 42.8 fl (35.1-43.9); Red Blood Count 5.76 M/mm3 (4.2-5.4); White Blood Count 10.2 K/mm3 (4.4-11.0)
[2024-07-26 15:49] LABS: Vitamin D,25 Hydroxy 77.2 ng/mL
[2024-07-26 16:11] LABS: Bacteria 1+ /hpf (None Seen)
[2024-07-26 16:16] LABS: ALB/GLOB Ratio 1.2 RATIO (0.9-2.4); AST(SGOT) 20 U/L (15-37); Alanine Aminotransfer ALT/SGPT 24 U/L (13-56); Albumin, Serum 3.8 g/dL (3.2-5.0); Alkaline Phosphatase 56 U/L (45-117); Anion Gap 10 (5-15); BUN 21 mg/dL (7-18); Calcium,Total 10.1 mg/dL (8.5-10.1); Chloride 101 mmol/L (98-107); Cholesterol 167 mg/dL (200); Creatinine, Serum 0.55 mg/dL (0.55-1.02); EST Glomerular Filtration Rate 115 mL/min (>60); Est Glom Filt Rate - Afr Amer 139 mL/min (>60); Globulin 3.3 g/dL (2.2-4.2); Glucose 99 mg/dL (74-106); High Density Lipoprotein 68 mg/dL; Potassium 3.7 mmol/L (3.5-5.1); Protein, Total 7.1 g/dL (6.4-8.2); Sodium Level 136 mmol/L (136-145); Triglycerides 105 mg/dL; Very Low Density Lipoprotein 21 mg/dL (5-40)
[2024-07-26 17:22] LABS: Hemoglobin A1c 6.1 % (3.8-5.6)
[2024-07-26 19:47] LABS: Microalbumin,Random Urine < 5.0 mg/L (NO RANGE EST.)
== END | disposition home or self-care (01) ==
LOC: MFPLAB 11:18
PROVIDERS: PCP Family Medicine; Visit Provider Family Medicine
DX: E11.69 Type 2 diabetes mellitus with other specified complication (principal); E55.9 Vitamin D deficiency, unspecified
CPT/HCPCS: 36415; 80053; 80061; 81001; 82043; 82306; 82570; 83036; 85025

== ENCOUNTER → 2024-08-15 | Outpatient (CLI) | payer MEDICARE, OTHER, SELFPAY ==
--- NOTE | 2024-08-15 12:55 | US_ITS ---
STUDY: THYROID ULTRASOUND REASON FOR EXAM: Female, 74 years old. Nodule TECHNIQUE: Ultrasound evaluation of the thyroid was performed with real-time and static ty-scale imaging. COMPARISON: 11/10/2022 FINDINGS: RIGHT LOBE: The right lobe of the thyroid gland measures 6.1 x 2.3 x 1.2 cm. There is a heterogeneous echotexture. Nodule 1: Enlarging (10 x 9 x 6 mm from 7 x 6 x 6 mm) mixed cystic and solid isoechoic wider than tall smoothly margined nodule and no echogenic foci (TR 2) in the lateral right lobe consistent with an adenoma. Nodule 2: Enlarging (15 x 11 x 7 mm from 13 x 8 x 12 mm) solid isoechoic wider than tall ill-defined margin nodule and no echogenic foci (TR 3) in the anterior right lobe and follow-up ultrasound is recommended in one year. Nodule 3: No change in the 11 x 12 x 9 mm solid isoechoic wider than tall ill-defined margin nodule were no echogenic foci (TR 3) in the posterior right lobe consistent with an adenoma. LEFT LOBE: The left lobe of the thyroid gland measures 5.2 x 2.5 x 1.2 cm. There is a heterogeneous echotexture. Nodule 4: Shrinking (10 x 9 x 7 mm from 13 x 8 x 14 mm) mixed cystic and solid isoechoic water than tall ill-defined margin nodule and no echogenic foci (TR/TE) in the mid left lobe consistent with an adenoma. Nodule 5: Enlarging (15 x 15 x 8 mm from 7 x 8 x 8 mm) solid hypoechoic wider than tall ill-defined margin nodule no echogenic foci (TR 4) in the mid left lobe for which biopsy is recommended. ( ISTHMUS: The isthmus measures 2 mm thick. . The regional lymph nodes are normal. US/Thyroid IMPRESSION: Multinodular thyroid gland with an enlarging nodule in left lobe for which ultrasound-guided biopsy is recommended. Follow-up ultrasound is recommended in 1 year. Electronically Signed: Dontrell Alberto MD at 12:43 EST ,
== END | disposition home or self-care (01) ==
LOC: US 12:50
PROVIDERS: PCP Family Medicine; Referring Provider Family Medicine; Visit Provider Family Medicine
DX: E04.2 Nontoxic multinodular goiter (principal)
CPT/HCPCS: 76536

== ENCOUNTER → 2024-12-21 | Outpatient (CLI) | payer MEDICARE, OTHER, SELFPAY ==
[2024-12-21 17:37] LABS: Absolute Lymphocyte Count 2.83 X10^3/uL (0.83-4.51); Absolute Neutrophil Count 6.4 X10^3/uL (2.0-7.7); Basophil# 0.09 X10^3/uL; Basophil% 0.8 % (0-1); Eosinophil# 0.37 X10^3/uL; Eosinophils% 3.5 % (0-5); Hematocrit 50.9 % (37-47); Hemoglobin 17.5 g/dL (12.0-15.0); Lymphocyte # 2.83 X10^3/ul (0.83-4.51); Lymphocyte % 26.6 % (19-41); Mean Corp Hgb Conc 34.4 g/dL (32-36); Mean Corpuscular Hgb 28.5 pg (27.0-32.0); Mean Platelet Vol. 10.7 fl (6.2-12.0); Monocyte# 0.95 X10^3/uL; Monocyte% 8.9 % (0-10); NRBC Flagged by Analyzer 0 % (0-5); Neutrophil # 6.36 X10^3/uL (2.7-7.7); Neutrophil % 59.9 % (47-70); Platelet Count 252 K/mm3 (150-450); RBC Distribution Width CV 13.1 % (11.6-14.6); RBC Distribution Width SD 39.2 fl (35.1-43.9); Red Blood Count 6.13 M/mm3 (4.2-5.4); White Blood Count 10.6 K/mm3 (4.4-11.0)
[2024-12-21 18:01] LABS: ALB/GLOB Ratio 1.5 RATIO (0.9-2.4); AST(SGOT) 23 U/L (<=31); Alanine Aminotransfer ALT/SGPT 15 U/L (<=34); Albumin, Serum 4.5 g/dL (3.4-4.8); Alkaline Phosphatase 73 U/L (35-104); Anion Gap 14 (5-15); BUN 20 mg/dL (4-19); BUN/Creat Ratio 33.2 RATIO (10-20); Calcium,Total 11.2 mg/dL (7.6-11.0); Carbon Dioxide 26.6 mmol/L (21.0-32.0); Chloride 97 mmol/L (98-108); Cholesterol 193 mg/dL (<=200); Creatinine, Serum 0.62 mg/dL (0.70-1.20); EST Glomerular Filtration Rate 95 (>60); Glucose 112 mg/dL (70-99); High Density Lipoprotein 62 mg/dL; Low Density Lipoprotein Calc. 106 mg/dL; Potassium 3.7 mmol/L (3.3-5.1); Protein, Total 7.5 g/dL (5.9-8.4); Sodium Level 138 mmol/L (133-145); Total Bilirubin 0.32 mg/dL (0.00-1.30); Triglycerides 126 mg/dL; Very Low Density Lipoprotein 25 mg/dL (5-40); cholesterol:hdl ratio screen 3.11
[2024-12-21 18:22] LABS: Hemoglobin A1c 6.1 % (<=5.6)
[2024-12-21 19:15] LABS: Microalbumin,Random Urine < 12.0 mg/L (NO RANGE EST.); Microalbumin:Creatinine Ratio UNABLE TO CALCULATE mg/g CRE
[2024-12-24 14:08] LABS: Ferritin 158 ng/mL (22-378); Iron 58 ug/dL (50-170); Iron Binding Capacity,Total 314 ug/dL (250-450); Iron Binding Capacity,Unsat 256 ug/dL (228-428)
== END | disposition home or self-care (01) ==
LOC: MFPLAB 16:49
PROVIDERS: PCP Family Medicine; Referring Provider Family Medicine; Visit Provider Family Medicine
DX: E11.8 Type 2 diabetes mellitus with unspecified complications (principal); R71.8 Other abnormality of red blood cells
CPT/HCPCS: 36415; 80053; 80061; 82043; 82570; 82728; 83036; 83540; 83550; 85025

== ENCOUNTER → 2024-12-22 | Outpatient (CLI) | payer MEDICARE, OTHER, SELFPAY ==
[2024-12-22 15:34] LABS: Ferritin 142 ng/mL (22-378); Iron 71 ug/dL (50-170); Iron Binding Capacity,Total 302 ug/dL (250-450); Iron Binding Capacity,Unsat 231 ug/dL (228-428)
[2024-12-24 05:07] LABS: Transferrin 254 mg/dL (192-364)
== END | disposition home or self-care (01) ==
LOC: MTLAB 13:22
PROVIDERS: PCP Family Medicine; Referring Provider Family Medicine; Visit Provider Family Medicine
DX: R71.8 Other abnormality of red blood cells (principal)
CPT/HCPCS: 36415; 82728; 83540; 83550; 84466

== ENCOUNTER 2025-04-28 11:22 | Outpatient (CLI) | payer MEDICARE, OTHER, SELFPAY ==
[2025-04-28 11:27] LABS: Mucous, Urine 0 SEEN /hpf (<or=2+)
[2025-04-28 15:27] LABS: Hematocrit 52.4 % (37-47); Hemoglobin 17.3 g/dL (12.0-15.0); Immature Granulocytes Count 0.060 X10^3/uL (0.0-0.0); Mean Corp Hgb Conc 33.0 g/dL (32-36); Mean Corpuscular Volume 86.3 fL (81-99); Mean Platelet Vol. 10.6 fl (6.2-12.0); NRBC Flagged by Analyzer 0 % (0-5); Platelet Count 256 K/mm3 (150-450); RBC Distribution Width CV 13.6 % (11.6-14.6); RBC Distribution Width SD 42.5 fl (35.1-43.9); Red Blood Count 6.07 M/mm3 (4.2-5.4); White Blood Count 11.1 K/mm3 (4.4-11.0)
[2025-04-28 15:59] LABS: Color, Urine Yellow (Yellow); Glucose, Dipstick 1000 mg/dl (Normal); Ketone-Dipstick Negative (Negative); Leukocyte Esterase-Dipstick Negative /ul (Negative); Nitrite-Dipstick Negative (Negative); Occult Blood-Urine Negative /ul (Negative); Protein-Dipstick Negative (Negative); Specific Gravity, Urine 1.015 (1.002-1.030); Urine Bilirubin Dipstick Negative (Negative)
[2025-04-28 16:08] LABS: Creatinine, Urine (random) 32.60 mg/dL (28.00-217.00); Microalbumin,Random Urine < 12.0 mg/L (<20 mg/L)
[2025-04-28 16:28] LABS: AST(SGOT) 21 U/L (<=31); Alanine Aminotransfer ALT/SGPT 18 U/L (<=34); Albumin, Serum 4.5 g/dL (3.4-4.8); Alkaline Phosphatase 64 U/L (35-104); Anion Gap 13 (5-15); BUN 21 mg/dL (4-19); BUN/Creat Ratio 38.1 RATIO (10-20); Calcium,Total 10.6 mg/dL (7.6-11.0); Carbon Dioxide 28.7 mmol/L (21.0-32.0); Chloride 94 mmol/L (98-108); Cholesterol 187 mg/dL (<=200); Globulin 2.8 g/dL (2.2-4.2); Glucose 88 mg/dL (70-99); Low Density Lipoprotein Calc. 98 mg/dL; Potassium 3.8 mmol/L (3.3-5.1); Triglycerides 108 mg/dL; Very Low Density Lipoprotein 22 mg/dL (5-40); Vitamin D,25 Hydroxy 100.0 ng/mL (30-100); cholesterol:hdl ratio screen 2.79
[2025-04-28 18:31] LABS: Red Blood Cells-Urine 0-5 SEEN /hpf (0-5); Squamous Epithelial Cells - UA 0-5 SEEN /hpf (5-10)
== END 2025-04-28 23:59 | disposition home or self-care (01) ==
LOC: MFPLAB 11:23
PROVIDERS: PCP Family Medicine; Referring Provider Family Medicine; Visit Provider Family Medicine
DX: E11.69 Type 2 diabetes mellitus with other specified complication (principal); E55.9 Vitamin D deficiency, unspecified
CPT/HCPCS: 80053; 80061; 81001; 82043; 82306; 82570; 83036; 85025

== ENCOUNTER → 2025-05-22 | Outpatient (CLI) | payer MEDICARE, OTHER, SELFPAY | END | disposition home or self-care (01) | LOC: LABSPEC 10:30 | PROVIDERS: PCP Family Medicine; Referring Provider Physician Assistant Medical; Visit Provider Physician Assistant Medical | DX: R82.90 Unspecified abnormal findings in urine (principal) | CPT/HCPCS: 87086; 87088 ==